=== PATIENT | female | born 1980 | race Caucasian/White ===

== ENCOUNTER → 2017-07-08 08:53 | Outpatient (CLI) | payer MEDICAID, SELFPAY ==
[2017-07-08 10:47] LABS: Cholesterol 148 mg/dL (200); High Density Lipoprotein 46 mg/dL; Thyroid Stim Hormone (TSH) 1.41 uIU/mL (0.358-3.74); Triglycerides 48 mg/dL; Very Low Density Lipoprotein 10 mg/dL (5-40)
[2017-07-09 09:42] LABS: Vitamin B12 267 pg/mL (211-911); Vitamin D,25 Hydroxy 14.8 ng/mL (29.95-100.01)
== END ==
PROVIDERS: Family Provider Internal Medicine; PCP Internal Medicine; Visit Provider Internal Medicine
DX: Z00.00 Encounter for general adult medical examination without abnormal findings (principal); F32.9 Major depressive disorder, single episode, unspecified
CPT/HCPCS: 36415; 80061; 82306; 82607; 84443

== ENCOUNTER 2017-08-21 09:52 | Outpatient (RCR) | payer MEDICAID, SELFPAY | END 2017-09-08 23:59 | LOC: NS 09:52 | PROVIDERS: Family Provider Internal Medicine; PCP Internal Medicine; Visit Provider Internal Medicine | DX: E66.01 Morbid (severe) obesity due to excess calories (principal); Z71.3 Dietary counseling and surveillance | CPT/HCPCS: 97802 ==

== ENCOUNTER 2017-10-07 10:30 | Outpatient (RCR) | payer MEDICAID, SELFPAY | END 2017-10-09 23:59 | LOC: NS 10:30 | PROVIDERS: Family Provider Internal Medicine; PCP Internal Medicine; Visit Provider Internal Medicine | DX: E66.01 Morbid (severe) obesity due to excess calories (principal); Z71.3 Dietary counseling and surveillance | CPT/HCPCS: 97803 ==

== ENCOUNTER 2017-11-05 14:30 | Outpatient (RCR) | payer MEDICAID, SELFPAY | END 2017-11-08 23:59 | LOC: NS 14:30 | PROVIDERS: Family Provider Internal Medicine; PCP Internal Medicine; Visit Provider Internal Medicine | DX: E66.01 Morbid (severe) obesity due to excess calories (principal); Z71.3 Dietary counseling and surveillance | CPT/HCPCS: 97803 ==

== ENCOUNTER 2017-12-04 13:00 | Outpatient (RCR) | payer MEDICAID, SELFPAY | END 2017-12-09 23:59 | LOC: NS 13:00 | PROVIDERS: Family Provider Internal Medicine; PCP Internal Medicine; Visit Provider Internal Medicine | DX: E66.01 Morbid (severe) obesity due to excess calories (principal); Z71.3 Dietary counseling and surveillance | CPT/HCPCS: 97803 ==

== ENCOUNTER 2017-12-25 08:17 | Outpatient (RCR) | payer MEDICAID, SELFPAY | END 2018-01-09 23:59 | LOC: NS 08:17 | PROVIDERS: Family Provider Internal Medicine; PCP Internal Medicine; Visit Provider Internal Medicine | DX: E66.01 Morbid (severe) obesity due to excess calories (principal); Z71.3 Dietary counseling and surveillance | CPT/HCPCS: 97803 ==

== ENCOUNTER 2018-01-27 14:30 | Outpatient (RCR) | payer MEDICAID, SELFPAY | END 2018-01-27 23:59 | LOC: NS 14:30 | PROVIDERS: Family Provider Internal Medicine; PCP Internal Medicine; Visit Provider Internal Medicine | DX: E66.01 Morbid (severe) obesity due to excess calories (principal); Z71.3 Dietary counseling and surveillance | CPT/HCPCS: 97803 ==

== ENCOUNTER 2018-03-26 05:23 | Day surgery (SDC) | payer MEDICAID, SELFPAY ==
[2018-03-26] VITALS (11 sets, daily range): BP systolic 104–125; BP diastolic 49–86; PULSE 62–73; RESP 14–18; TEMP 35.8–36.6; O2SAT 98–100; BMI 46.3
--- NOTE | 2018-03-26 | HYST_PTH ---
PATIENT: JOLENE LEE [place] [facility] [id number] AGE/SX: 37/F ROOM: RE03/26/[address]: Dr. Cierra Vasquez, MDDOB: 1980 BED: DIS: 03/26/2018 SPEC #: [id number] RECD: 03/26/18 12:39 STATUS: ANGELINE BALDEMAR #: [id number] JELANI: 03/26/18 00:[address]: Cierra Vasquez DEPT: SURGICAL PATHOLOGY RECD BY: Abhishek Rainey ENTERED: 03/26/18 12:40 SP TYPE: HYSTERECT OTHR DR: Dr. Lu Pitts MD Tissues: Uterus, NOS Procedures: Surgery Specimen Level V HEADER OPERATION: Hysterectomy, laparoscopic, total salpingectomy, ERAS PRE-OP DIAGNOSIS: Dysmenorrhea, suspected adenomyosis TISSUE SUBMITTED: Uterus with bilateral fallopiana tubes MICROSCOPIC DIAGNOSIS Uterus and bilateral fallopian tubes, hysterectomy and bilateral salpingectomy: Cervix - mild chronic cystic cervicitis. Endometrium - secretory endometrium. Myometrium - a minute subserosal leiomyoma. Bilateral fallopian tubes - no pathologic diagnosis: Merary 03/27/18 MICROSCOPIC DESCRIPTION Slides are reviewed. GROSS DESCRIPTION Received in fixative is one container labeled with the patient's name and designated uterus and bilateral fallopian tubes. The specimen consists of a hysterectomy specimen consisting of uterus with cervix and detached bilateral fallopian tubes. The uterus with cervix weighs 100 gm and measures 8.5 x 7 x 4.5 cm. The serosal surface is focally ragged. A minute subserosal nodule is noted. A Filshie clip is also noted at the right cornua, which appears intact. The ectocervical mucosa is unremarkable. The external os is circular in contour. The endocervical canal measures 3 cm in length and the endocervical mucosa is unremarkable. Sections of the cervix reveal a few cyst filled mucoid material. The triangular endometrial cavity measures 5 cm in length and up to 3 cm in width. The endometrium is focally congested without any mass lesion and measures 0.1 cm in thickness. A section of the myometrial wall did not reveal any mass lesion and measures 2.0 cm in thickness. Fallopian tubes are not identified as right or left and each measures 4 cm in length and 0.4 cm in diameter. Fimbrial end is identified. Sections reveal unremarkable cut surfaces. Plaster Helper sections are submitted in 9 cassettes as follows: 1 - anterior cervix, 2 - posterior cervix, 3 & 4 - anterior uterine wall, 5 & 6 - posterior uterine wall, 7 - a small subserosal nodule, 8 & 9 - bilateral fallopian tube each containing 1 fallopian tube. /OMAR:beverly 03/26/18 TC: 1 CPT: 56219
[2018-03-26 05:51] LABS: Internal QC Validated? YES +Cl - CLEAR BKGD; Pregnancy, Urine Negative Negative
[2018-03-26 06:07] LABS: Hematocrit 41.2 % (37-47); Hemoglobin 13.6 g/dl (12.0-15.0); Mean Corpuscular Hgb 28.1 pg (27.0-32.0); Mean Corpuscular Volume 85.1 fL (81-99); Platelet Count 220 K/mm3 (150-450); RBC Distribution Width CV 14.7 % (11.6-14.6); RBC Distribution Width SD 45.1 fl (35.1-43.9); Red Blood Count 4.84 M/mm3 (4.2-5.4); White Blood Count 8.6 K/mm3 (4.4-11.0)
[2018-03-26 06:10] LABS: Scan Indicated on CBC? Y/N NO
[2018-03-26] MEDS: Celecoxib 200 MG Capsule 400 MG PO (06:14)
[2018-03-26] MEDS: Acetaminophen 500 MG Tablet 1000 MG PO (06:14)
[2018-03-26] MEDS: Gabapentin 600 MG Tablet PO (06:14)
[2018-03-26] MEDS: Scopolamine 1mg/72hr Patch 1 PATCH TRANSDERM. (06:15)
[2018-03-26] MEDS: Phenazopyridine 95 MG Tablet 190 MG PO (06:21)
[2018-03-26 06:40] LABS: Bedside Glucose 120 mg/dL (70-110)
[2018-03-26] MEDS: Lidocaine/D5W 2,000 MG/250 ML IV.SOLN 37.32 MG IV (07:43)
[2018-03-26] MEDS: Lubricating Jelly 60 GM Tube 30 GM TOPICAL (08:10)
[2018-03-26] MEDS: Bupivacaine Mpf 0.5% 30 ML VIAL (09:20)
--- NOTE | 2018-03-26 09:28 | OP.PCM_ITS ---
Report of Operation Date of Procedure: 03/26/18 Pre-Operative Diagnosis: AUB, dysmenorrhea Post-Operative Diagnosis: same Surgery/Procedure Performed:: TLH, Bilateral salpingectomy, cystoscopy Description of Surgical Findings:: uterus normal, bladder adherant to lower uterine segment. bilateral tubes with filshie clips present Ovaries normal ink technician: Chandrika Zabala Type of Anesthesia:: General Special Medications: 0.5% marcaine Specimen's removed: uterus, cervix, bilateral tubes Drains: baez Estimated Blood Loss (mL): 50 Fluids Replaced: 600 Description of Procedure: Patient take to OR and prepped and draped in usual sterile fashion in dorsal lithotomy position with her arms tucked in a neurologically safe and neutral position. The uterus sounded to 9 cm. The Vcare uterine manipulator was sutured into place at 3/9:00 position and baez were placed. Attention was turned to the abdomen. All port sites were infiltrated with 0.5% marcaine before the incisions were made. The anterior abdominal wall was tented up with towel clamps and using a direct entry approach a 5 mm intraumbilical port was placed. Intraperitoneal placement was confirmed with the laparoscope and the pneumoperitoneum was created. The patient was placed in Trendelenburg and 5 mm right and left lower quadrant ports were placed under direct visualization. Air seal rapid insufflator was used. The bowel was swept away. Ovaries appeared normal. The mesosalpinx starting at fimbriated end were grasped, clamped, sealed and transected with the Ligasure. The round ligaments were divided. The anterior peritoneum was dissected down to create the bladder flap with blunt dissection and the LigaSure. The uterine arteries were isolated, clamped, sealed and cut. There was minimal back bleeding from the uterus. Straight bites on uterine arteries performed to drop them off the cuff. The Vcare was used as guide to create colpotomy using monopolar tip of ligasure. once specimen was removed attention was turned to vaginal portion. The specimen was handed off. The cuff was closed with interrupted 0-vicryl figure of 8 sutures. Cystoscopy was performed bilateral ureters were visualized with good efflux. bladder was intact. baez replaced and sponge stick placed in vagina. The pneumoperitoneum was recreated and the cuff and pedicles were hemostatic. The skin incisions were closed with skin glue and 3-0 monocryl in the LLQ port site. The vaginal sweep was completed by me. Grafts/Implants Used: none - Complications none - Admit VTE Documentation VTE Present on Admission: Yes VTE Mechan Device Prophylaxis: SCD's VTE Pharm Prophylaxis ordered?: Yes
--- NOTE | 2018-03-26 09:37 | DCINST_ITS ---
Discharge Diet: No Restrictions Discharge Activity: Return to Normal Activity, May Not Drive - while taking narcotic pain medications., May Shower Return to work on:: 05/07/18 May resume sexual activity in: 6-8 weeks Lifting Restrictions: 20 Call your doctor if your incision/area has: Continuous Slow Oozing, Sudden Increased Bleeding, Increased Pain/ Swelling, Increased Redness, Foul Smelling Discharge Call your doctor if you observe: Fever of 101 or Higher, Inability to urinate, Inability to have a bowel movement, Using more than one pad per hour Cleanse incision/area with: Soap & Water, Keep Dressing Clean & Dry - you have skin glue on your incisions, may let soap and water run over and dab dry. do not pick off glue, - Allergies/Adverse Reactions: Allergies No Known Allergies Allergy (Verified 03/19/18 14:21) Medications to take at Discharge Calcium Carbonate [Tums] 1,000 mg PO BIDCM PRN 03/19/18 Ibuprofen 600 mg PO PRN PRN 03/19/18 Docusate Sodium [Colace] 100 mg PO BID #60 capsule 03/26/18 Insulin Lispro [Humalog KwikPen] 0 unit SC Q4H PRN PRN insuln.pen 03/26/18 Oxycodone HCl/Acetaminophen [Percocet 5/325] 1 - 2 tablet PO Q4H PRN PRN 7 Days #15 tablet 03/26/18 SimETHICONE [Mylicon] 80 mg PO 4X/DAY #60 tablet 03/26/18 The following prescriptions were given: Oxycodone HCl/Acetaminophen [Percocet 5/325] 1 - 2 tablet PO Q4H PRN PRN 7 Days #15 tablet PRN Reason: Pain Docusate Sodium [Colace] 100 mg PO BID #60 capsule SimETHICONE [Mylicon] 80 mg PO 4X/DAY #60 tablet Primary Care Physician: Lu Pitts MD [Primary Care Provider] - Test Results: Test results from this visit will be discussed in further detail at your follow- up appointment, if applicable. Please Follow Up With: Cierra Vasquez MD When: as scheduled
[2018-03-26] MEDS: HYDROcodone Bitartrate/Apap 5/325 Tablet PO (12:08)
--- NOTE | 2018-03-26 12:24 | SUR.PHASEII ---
1220 baez cath discont. small amt scarlet urine noted in drainage bag.
== END 2018-03-26 15:21 | disposition home or self-care (01) ==
LOC: SDC 05:23 → AC 05:25 → MS2 10:21 → AC 11:12
PROVIDERS: Family Provider Internal Medicine; PCP Internal Medicine; Referring Provider Obstetrics & Gynecology; Visit Provider Obstetrics & Gynecology
PROC: 0UT94ZZ Resection of Uterus, Percutaneous Endoscopic Approach (ICD-10-PCS; CPT 52000; principal; 2018-03-26 07:10)
DX: N72 Inflammatory disease of cervix uteri (principal); D25.2 Subserosal leiomyoma of uterus; N94.6 Dysmenorrhea, unspecified
CPT/HCPCS: 00840; 52000; 58571; 81025; 82962; 85027; 86850; 86900; 88307; J7050; J7120; A4216; J2405

== ENCOUNTER → 2019-11-22 11:44 | Outpatient (CLI) | payer MEDICAID, SELFPAY ==
[2019-01-11 11:12] VITALS: BMI 46.3
--- NOTE | 2019-11-22 12:09 | EKG12_ITS ---
Test Reason : FAMILY HX Blood Pressure : / mmHG Vent. Rate : 071 BPM Atrial Rate : 071 BPM P-R Int : 164 ms QRS Dur : 078 ms QT Int : 418 ms P-R-T Axes : 032 031 030 degrees QTc Int : 454 ms Normal sinus rhythm Normal ECG Confirmed by ANTHONY COATES, BOOM ([id number]), research editor DONA BARROW ([id number]) on 11/23/2019 10:09:22 AM Referred By: Beth Gallegos Confirmed By:BOOM CRUZ MD
[2019-11-22 12:32] LABS: Hematocrit 43.7 % (37-47); Hemoglobin 14.5 g/dL (12.0-15.0); Mean Corp Hgb Conc 33.2 g/dL (32-36); Mean Corpuscular Hgb 29.8 pg (27.0-32.0); Mean Corpuscular Volume 89.9 fL (81-99); Mean Platelet Vol. 11.5 fl (6.2-12.0); Platelet Count 214 K/mm3 (150-450); RBC Distribution Width CV 13.7 % (11.6-14.6); RBC Distribution Width SD 44.8 fl (35.1-43.9); Red Blood Count 4.86 M/mm3 (4.2-5.4); White Blood Count 8.7 K/mm3 (4.4-11.0)
[2019-11-22 13:12] LABS: Hemoglobin A1c 5.1 % (3.8-5.6)
[2019-11-22 13:37] LABS: AST(SGOT) 12 U/L (15-37); Alanine Aminotransfer ALT/SGPT 24 U/L (13-56); Albumin, Serum 3.5 g/dL (3.2-5.0); Alkaline Phosphatase 69 U/L (45-117); Anion Gap 7 (5-15); BUN 10 mg/dL (7-18); BUN/Creat Ratio 15.2 RATIO (10-20); Calcium,Total 8.5 mg/dL (8.5-10.1); Chloride 105 mmol/L (98-107); Cholesterol 164 mg/dL (200); Creatinine, Serum 0.66 mg/dL (0.55-1.02); EST Glomerular Filtration Rate 107 mL/min (>60); Est Glom Filt Rate - Afr Amer 130 mL/min (>60); Globulin 3.4 g/dL (2.2-4.2); Glucose 85 mg/dL (74-106); High Density Lipoprotein 44 mg/dL; Protein, Total 6.9 g/dL (6.4-8.2); Sodium Level 136 mmol/L (136-145); Thyroid Stim Hormone (TSH) 1.33 uIU/mL (0.358-3.74); Triglycerides 44 mg/dL; Very Low Density Lipoprotein 9 mg/dL (5-40)
== END ==
PROVIDERS: PCP Nurse Practitioner Adult Health; Referring Provider Nurse Practitioner Adult Health; Visit Provider Nurse Practitioner Adult Health
DX: Z13.29 Encounter for screening for other suspected endocrine disorder (principal); Z13.21 Encounter for screening for nutritional disorder; Z13.228 Encounter for screening for other metabolic disorders; Z13.0 Encounter for screening for diseases of the blood and blood-forming organs and certain disorders involving the immune mechanism; Z13.6 Encounter for screening for cardiovascular disorders; Z13.220 Encounter for screening for lipoid disorders
CPT/HCPCS: 36415; 80053; 80061; 83036; 84443; 85027; 93005

== ENCOUNTER 2020-02-09 22:31 | Emergency (ER) | payer MEDICAID, SELFPAY ==
[2019-01-11 11:12] VITALS: BMI 46.3
[2020-02-09 22:31] VITALS: BP 146/91; PULSE 98; RESP 16; TEMP 36.4; O2SAT 100; BMI 47.7
--- NOTE | 2020-02-09 22:54 | RAD_ITS ---
STUDY: X-RAY - LEFT FOOT CLINICAL: Female, 39 years old. dropped a plate on top of lt foot -- c/o pain across dorsal surface area of proximal 2nd-4th metatarsal TECHNIQUE: 3 view(s) of the foot. COMPARISON: None. FINDINGS: Normal talus, calcaneus, and tarsal bones. Normal visualized subtalar, talonavicular, calcaneocuboid, tarsal and tarsometatarsal articulations. Normal metatarsi. Normal metatarsophalangeal joint of the great toe. Normal tibial and fibular sesamoid bones. Normal interphalangeal joint of the great toe. Normal phalanges of the great toe. Normal second through fifth metatarsophalangeal joints. Normal interphalangeal joints and phalanges of the lesser toes. The soft tissue structures are unremarkable. RAD/Foot min 3 Views IMPRESSION: No acute osseous injury is evident. Electronically Signed: Manuel Mckeon MD at 23:19 EDT Tel , Service support ,
--- NOTE | 2020-02-09 22:54 | ED.DCSUM_ITS ---
History of Present Illness Chief Complaint: Lower Extremity Injury Informant: Patient Narrative: Presents with injury to her left foot. At 1 PM today she dropped a heavy plate on it at home. She is having pain in the proximal portion of the foot. No ankle injury or distal foot injury. Current severity is mild. She has some mild numbness in that area. Worsened by nothing. Relieved by nothing. - Past Medical History (1) Yeast infection of nipple, Status: Acute (2) Depression Status: Chronic (3) Morbid obesity Status: Chronic Past Medical History - Allergies and Home Meds Allergies/Adverse Reactions: Allergies No Known Allergies Allergy (Verified 02/09/20 22:33) Primary Care Physician: Beth Gallegos NP, [facility] [Primary Care Provider] - Prior records reviewed: Yes Past Medical History: - - Problem list - see Smoking Status: Former smoker Alcohol: None Drugs: None Review of Systems General: Denies: Chills, Fever, Sweats Eyes: Denies: Visual changes - bilaterally, Diplopia ENT: Denies: Rhinorrhea, Sore throat Cardiovascular: Denies: Chest pain, Palpitations Respiratory: Denies: Dyspnea, Cough, Dyspnea on exertion Gastrointestinal: Denies: Abdominal pain, Nausea, Vomiting, Diarrhea, Melena, Hematochezia Genitourinary: Denies: Dysuria, Hematuria, Frequency Musculoskeletal: Reports: Extremity Pain. Denies: Back pain Skin: Denies: Rash, Wounds Neurological: Denies: Headache, Weakness, Numbness Physical Exam Vital Signs/Narrative: Vital Signs Temp Pulse Resp BP Pulse Ox 02/09/20 22:31 97.5 F L 98 16 146/91 H 100 General: Well nourished, Well developed, No Acute Distress Head: Normocephalic, Atraumatic Eyes: Perrl, EOMI ENT: Moist mucous membranes, No rhinorrhea Neck: Supple, Nontender Cardiovascular: Regular rate, Regular rhythm, No murmurs Respiratory: No distress, CTA bilaterally, Chest nontender Abdomen: Soft, Nontender, Nondistended, Normal bowel sounds Back: Nontender, Normal Inspection Extremities: No edema, Tenderness - Tenderness in the proximal foot right over the proximal cuneiform. Normal range of motion. Distal neurovascular intact. Minimal swelling Skin: Normal color, No rash Neurological: Alert, Oriented x3, Cranial nerves II-XII grossly intact, Normal Strength, Normal Sensation Psychological: Normal affect, Normal Mood Diagnostic/Tx/Re-eval - Medical Decision Making Patient did not anything for pain. Given ice pack. X-ray of the left foot obtained. X-ray shows nothing acute. At this time I feel the patient just has a contusion to the top of her foot with a little neuropraxia. This should resolve. Given Kieth wrap and will follow-up as an outpatient will continue anti- inflammatories ED Disposition - Plan for ED Patient: Disposition: Home or Assisted Living Diagnosis: Contusion of foot Instructions: ED FOOT CONTUSION Referrals: Beth Gallegos NP, [facility] [Primary Care Provider] -
== END 2020-02-09 23:55 | disposition home or self-care (01) ==
PROVIDERS: Emergency Provider Emergency Medicine; PCP Nurse Practitioner Adult Health
DX: S90.32XA Contusion of left foot, initial encounter (principal); E66.01 Morbid (severe) obesity due to excess calories; X58.XXXA Exposure to other specified factors, initial encounter
CPT/HCPCS: 73630; 99282

== ENCOUNTER → 2020-07-19 06:37 | Outpatient (CLI) | payer MEDICAID, SELFPAY ==
--- NOTE | 2020-07-19 06:43 | MRI_ITS ---
STUDY: MRI LEFT REARFOOT WITHOUT CONTRAST REASON FOR EXAM: Left foot/ankle pain for years, evaluate posterior tibialis tendinitis. TECHNIQUE: Standardized fat and water weighted pulse sequences were obtained in all 3 orthogonal planes. COMPARISON: Radiographs 02/09/2020. FINDINGS: There is a ganglion cyst dorsal to the distal talus/talonavicular articulation (T2 sagittal images 8-13) measuring approximately 0.6 x 1.6 cm (AP x transverse). There is mild edema in the plantar heel pad. There is mild thickening of the retromalleolar posterior tibialis tendon (T2 axial 28-30) without discrete tendon tear and with very mild submalleolar and retromalleolar tenosynovitis (inversion recovery sagittal images 5, 7). Normal flexor digitorum longus tendon. There is fluid in the flexor hallucis longus tendon sheath proximal and distal to the sustentaculum monica (inversion recovery sagittal images 10-13). There is a very small volume of fluid in the perimalleolar peroneal tendon sheath (inversion recovery sagittal image 22). The peroneus longus and brevis tendons are morphologically normal. Normal tibialis anterior tendon. Normal extensor hallucis longus tendon. Normal extensor digitorum longus tendons. Normal Achilles tendon and teno-osseous insertion. Normal plantar fascia. There is a plantar calcaneal enthesophyte. Normal intrinsic muscles of the rearfoot. Normal distal tibiofibular syndesmotic ligamentous complex. Normal lateral ligamentous complex. There is fat replacement the sinus tarsi (T1 sagittal images 12-15). There is mild bone edema/cystic change in the talus and calcaneus adjacent to the sinus tarsi. Normal deltoid ligamentous complexes. Normal plantar calcaneonavicular (spring) ligament. Normal tibiotalar articulation. Normal talar dome. Normal subtalar articulations. Normal talonavicular articulation. There is a small cyst in the plantar medial aspect of the navicular (inversion recovery sagittal image 7). Normal calcaneocuboid articulation. Normal navicular-cuneiform articulations. Normal tarsometatarsal articulations. Normal Lisfranc ligament. MRI/Lower Ext/No Jt/w/o IMPRESSION: Mild posterior tibialis tendinosis and very mild posterior tibialis tenosynovitis. 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 Very mild peroneal tenosynovitis. Fluid in the flexor hallucis longus tendon sheath. Ganglion cyst dorsal to the distal talus/talonavicular articulation. Electronically Signed: Derrell Mo MD at 8:56 EST Tel , Service support ,
== END ==
PROVIDERS: PCP Nurse Practitioner Adult Health
DX: M76.822 Posterior tibial tendinitis, left leg (principal); M79.672 Pain in left foot
CPT/HCPCS: 73718

== ENCOUNTER 2020-12-22 14:32 | Emergency (ER) | payer MEDICAID, SELFPAY ==
[2020-12-22 14:33] VITALS: BP 123/87; PULSE 77; RESP 18; TEMP 37.2; O2SAT 100; BMI 46.3
--- NOTE | 2020-12-22 14:57 | EKG12_ITS ---
Test Reason : CP Blood Pressure : / mmHG Vent. Rate : 066 BPM Atrial Rate : 066 BPM P-R Int : 174 ms QRS Dur : 078 ms QT Int : 414 ms P-R-T Axes : 053 037 043 degrees QTc Int : 434 ms Normal sinus rhythm Normal ECG Confirmed by ANTHONY COATES, BOOM ([id number]), field map editor DONA BARROW ([id number]) on 12/26/2020 9:08:36 AM Referred By: PAULETTE/RUBI Confirmed By:BOOM CRUZ MD
[2020-12-22 15:31] LABS: Absolute Lymphocyte Count 3.16 X10^3/uL (0.83-4.51); Basophil# 0.05 X10^3/uL; Basophil% 0.5 % (0-1); Eosinophil# 0.14 X10^3/uL; Eosinophils% 1.4 % (0-5); Hematocrit 44.2 % (37-47); Hemoglobin 14.9 g/dL (12.0-15.0); Lymphocyte # 3.16 X10^3/ul (0.83-4.51); Mean Corp Hgb Conc 33.7 g/dL (32-36); Mean Corpuscular Hgb 30.2 pg (27.0-32.0); Mean Corpuscular Volume 89.7 fL (81-99); Mean Platelet Vol. 11.2 fl (6.2-12.0); Monocyte# 0.46 X10^3/uL; Monocyte% 4.7 % (0-10); NRBC Flagged by Analyzer 0 % (0-5); Neutrophil # 6.03 X10^3/uL (2.7-7.7); Neutrophil % 61.2 % (47-70); Platelet Count 227 K/mm3 (150-450); RBC Distribution Width CV 13.3 % (11.6-14.6); RBC Distribution Width SD 43.9 fl (35.1-43.9); Red Blood Count 4.93 M/mm3 (4.2-5.4); White Blood Count 9.9 K/mm3 (4.4-11.0)
--- NOTE | 2020-12-22 15:40 | RAD_ITS ---
STUDY: X-RAY CHEST REASON FOR EXAM: Female, 40 years old. Chest pain and shortness of breath. TECHNIQUE: Single AP portable view of the chest. COMPARISON: None. FINDINGS: The lungs are clear and expanded. There is no demonstrated pleural abnormality. Normal size heart. Normal mediastinum and sabine. Normal visualized pulmonary arteries. Normal visualized aortic arch and descending thoracic aorta. Normal visualized thoracic spine. Normal visualized ribs, clavicles, and shoulders. There is no demonstrated abnormality of the visualized soft tissue structures of the upper abdomen. RAD/Chest 1 View (Portable) IMPRESSION: Normal x-ray examination of the chest. Electronically Signed: Reed Cordova MD at 15:54 EDT , Service support ,
[2020-12-22 15:43] LABS: Anion Gap 4 (5-15); BUN 14 mg/dL (7-18); BUN/Creat Ratio 22.4 RATIO (10-20); Calcium,Total 9.2 mg/dL (8.5-10.1); Chloride 110 mmol/L (98-107); Creatinine, Serum 0.63 mg/dL (0.55-1.02); EST Glomerular Filtration Rate 113 mL/min (>60); Est Glom Filt Rate - Afr Amer 137 mL/min (>60); Estimated Creatinine Clearance 104.55 ml/min; Glucose 88 mg/dL (74-106); Potassium 3.9 mmol/L (3.5-5.1); Sodium Level 139 mmol/L (136-145); Troponin-I HS < 3.0 pg/mL (3.0-53.7)
[2020-12-22 16:14] VITALS: BP 108/72; PULSE 58; RESP 15; O2SAT 100
--- NOTE | 2020-12-22 16:23 | EDS_ITS ---
HPI History of Present Illness Chief Complaint: Chest Pain Informant: patient Onset/Context/Timing Onset: Yesterday Activity at onset: gradual Timing: Waxes and wanes Quality: Positive for Sharp Location: Right Parasternal Current Severity: Moderate Maximum Severity: Moderate Narrative Narrative: Patient presents secondary to right upper chest pain. She states it is sharp in nature. She does feel short of breath and has to consciously take a deep breath. Pain started last evening and resolved for short time. It has been constant again for the past 3 or 4 hours. Patient states she has had this in the past and it seems to resolve spontaneously. She is never had it evaluated. No personal history of cardiac disease. [facility] Medical History Tendinitis Home Medications simethicone [Mylicon] 80 mg PO 4X/DAY #60 tablet 03/26/18 [Rx Last Taken Unknown ] naproxen [Naprosyn] 500 mg PO BID PRN #20 tab 12/22/20 [Rx Last Taken Unknown] prednisone 60 mg PO DAILY #15 tab 12/22/20 [Rx Last Taken Unknown] Allergy/AdvReac Type Severity Reaction Status Date / Time No Known Allergies Allergy Verified 12/22/20 14:33 Family History Other Diabetes Heart disease Surgical History History of section History of hysterectomy History of tubal ligation Social History Smoking Status: Never smoker second hand exposure: Yes alcohol intake: never substance use type: does not use ROS ROS ED Constitutional Constitutional ED: Denies chills or fever(s) Eyes Eyes: Denies change in vision ENT ENT ED: Denies sore throat Cardiovascular Cardiovascular: Reports chest pain Respiratory/Chest Respiratory/Chest: Reports dyspnea; Denies cough Gastrointestinal Gastrointestinal: Denies abdominal pain, diarrhea, nausea or vomiting Genitourinary Genitourinary ED: Denies dysuria Musculoskeletal Musculoskeletal: Denies back pain Integumentary Denies rash Neurologic Neurologic: Denies headache(s) or weakness Psychiatric Psychiatric: Denies anxiety or depression Allergic/Immunologic Allergic/Immunologic ED: Denies urticaria EXAM Physical Exam Const Vital Signs: 12/22/20 14:33 12/22/20 16:14 12/22/20 16:15 Temperature 98.9 F Temperature Source Temporal Pulse Rate 77 58 L Respiratory Rate 18 15 Respiratory Effort Non-Labored Short of Breath Blood Pressure 123/87 H 108/72 Blood Pressure Mean 99 84 Pulse Ox 100 100 Oxygen Delivery Method Room Air Room Air 12/22/20 16:18 12/22/20 18:10 Temperature Temperature Source Pulse Rate 57 L Respiratory Rate 19 H Respiratory Effort Blood Pressure 107/71 Blood Pressure Mean 83 Pulse Ox 100 Oxygen Delivery Method Room Air Room Air Positive well nourished and well developed General Appearance ED: well developed HEENT Reports normocephalic and head/scalp atraumatic Eyes PERRL and EOMs intact bilaterally Neck supple Chest Wall inspection of chest normal and palpation of chest normal Resp normal respiratory effort and clear to auscultation bilaterally Cardio regular rate and regular rhythm GI normal to inspection, nondistended, normoactive bowel sounds Palpation: soft Extremity normal to inspection Neuro oriented x3 and no sensory deficits noted Sensorium / Orientation: alert Motor Exam: strength 5/5 throughout Psych mental status grossly normal Skin no rashes or lesions noted Heart Score History: Slightly/Non-Suspicious ECG: Normal Age: </= 45 years Risk Factors: No Risk Factors Troponin: </= Normal Limit Score: 0 MDM MDM MDM Narrative Medical decision making narrative: Labs, EKG, chest x-ray obtained per nursing protocol. Lab Data Attestation: I reviewed the patient's lab results. Labs: Laboratory Results - last 24 hr 12/22/20 12/22/20 12/22/20 15:20 15:20 16:25 WBC 9.9 RBC 4.93 Hgb 14.9 Hct 44.2 MCV 89.7 MCH 30.2 MCHC 33.7 RDW Std Deviation 43.9 RDW Coeff of Shameka 13.3 Plt Count 227 MPV 11.2 Immature Gran % (Auto) 0.200 Neut % (Auto) 61.2 Lymph % (Auto) 32.0 [place] % (Auto) 4.7 Eos % (Auto) 1.4 Baso % (Auto) 0.5 Absolute Neuts (auto) 6.0 Absolute Lymphs (auto) 3.16 Nucleated RBC % 0 D-Dimer Quant (PE/DVT) 0.40 Sodium 139 Potassium 3.9 Chloride 110 H Carbon Dioxide 25.0 Anion Gap 4 L BUN 14 Creatinine 0.63 Estim Creat Clear Calc 104.55 Est GFR (MDRD) Af Amer 137 Est GFR (MDRD) Non-Af 113 BUN/Creatinine Ratio 22.4 H Glucose 88 Calcium 9.2 Troponin I High Sens < 3.0 L Radiography Chest X-Ray - ED: 1 View, Normal, Heart, Lungs and Mediastinum Diagnostic Testing: Radiology Impression Chest X-Ray 12/22/20 15:40 IMPRESSION: Normal x-ray examination of the chest. Electronically Signed: Reed Cordova MD at 15:54 EDT , Service support , EKG Initial EKG: Attestation: I personally reviewed and interpreted this EKG as follows: Interpretation: Sinus Rhythm (Sinus at 66 with no acute ischemia.) Treatment and Re-Evaluation Comments:: Patient's lab work is reviewed and unremarkable. D-dimer is negativ e. She was given a dose of Toradol and Solu-Medrol here. On repeat evaluation she does have some improvement in her symptoms. Patient be given prescription for naproxen and prednisone. Return instructions are provided. Discharge Plan Triage Chief Complaint: Chest Pain Other Complaint: Shortness of Breath ED Provider: Mony Cash Dx/Rx/DC Orders Clinical Impression: Acute chest wall pain Instructions: ED Chest Pain, Noncardiac Prescriptions: New naproxen [Naprosyn] 500 mg tablet 500 mg PO BID PRN (Reason: pain) Qty: 20 RF: 0 prednisone 20 mg tablet 60 mg PO DAILY Qty: 15 RF: 0 No Action simethicone [Mi-Acid Gas Relief(simethicon)] 80 MG tablet 80 mg PO 4X/DAY Qty: 60 RF: 0 Primary Care Provider: Beth Gallegos NP Referrals: Beth Gallegos NP, [facility] [Primary Care Provider] - 1-2 Weeks Disposition Disposition: Home, Self Care
[2020-12-22 18:10] VITALS: BP 107/71; PULSE 57; RESP 19; O2SAT 100
[2020-12-22] MEDS: MethylPREDNISolone 125 MG/2 ML Vial IV (18:15)
[2020-12-22] MEDS: Ketorolac 30 MG/ML Syringe IV (18:15)
[2020-12-22 19:06] VITALS: BP 132/87; PULSE 64; RESP 15
== END 2020-12-22 19:19 | disposition home or self-care (01) ==
PROVIDERS: Emergency Provider Emergency Medicine; PCP Nurse Practitioner Adult Health
DX: R07.89 Other chest pain (principal); R06.02 Shortness of breath; Z79.1 Long term (current) use of non-steroidal anti-inflammatories (NSAID); Z79.52 Long term (current) use of systemic steroids
CPT/HCPCS: 71045; 80048; 84484; 85025; 85379; 93005; 96374; 96375; 99284; A4216

== ENCOUNTER → 2021-01-23 12:52 | Outpatient (CLI) | payer MEDICAID, SELFPAY | PROVIDERS: PCP Nurse Practitioner Adult Health; Referring Provider Physician Assistant Surgical; Visit Provider Physician Assistant Surgical | DX: R05 Cough (principal) | CPT/HCPCS: 87635; U0005; U0003 ==

== ENCOUNTER 2021-05-21 11:10 | Emergency (ER) | payer MEDICAID, SELFPAY ==
[2021-05-21 11:11] VITALS: BP 136/95; PULSE 86; RESP 15; TEMP 36.7; O2SAT 100; BMI 45.4
--- NOTE | 2021-05-21 13:14 | EDS_ITS ---
HPI History of Present Illness Chief Complaint: Back Informant: patient Onset/Context/Timing Onset: Days Narrative Narrative: Patient presents secondary to left lower back pain. Patient states that she fell asleep on the couch Friday night. When she woke Friday morning she had pain across her lower back. She is having trouble bending. She did use supportive care and was able to go to work this morning. While at work she had increased pain with occasional sharp shooting pain in the left lower back wrapping around her side. She denies urinary symptoms. Pain does not radiate down her leg. She does have a bad tendon in her left foot that she is currently on diclofenac, Tylenol, and gabapentin for PFSH [facility] Medical History Contact with or suspected exposure to other viral communicable disease Cough Depression Tendinitis Yeast infection of nipple, Home Medications cyclobenzaprine 10 mg PO BID PRN #10 tab 05/21/21 [Rx Last Taken Unknown] diclofenac sodium 75 mg PO DAILY 05/21/21 [History Last Taken Unknown] gabapentin 600 mg PO TID 05/21/21 [History Last Taken Unknown] prednisone 60 mg PO DAILY #12 tab 05/21/21 [Rx Last Taken Unknown] Allergy/AdvReac Type Severity Reaction Status Date / Time No Known Allergies Allergy Verified 05/21/21 11:13 Family History Other Diabetes Heart disease Surgical History History of section History of hysterectomy History of tubal ligation Social History Smoking Status: Never smoker second hand exposure: Yes alcohol intake: never substance use type: does not use ROS ROS ED Constitutional Constitutional ED: Denies chills or fever(s) Eyes Eyes: Denies change in vision ENT ENT ED: Denies sore throat Cardiovascular Cardiovascular: Denies chest pain Respiratory/Chest Respiratory/Chest: Denies cough or dyspnea Gastrointestinal Gastrointestinal: Denies abdominal pain, diarrhea, nausea or vomiting Genitourinary Genitourinary ED: Denies dysuria, hematuria or urinary frequency Musculoskeletal Musculoskeletal: Reports back pain Integumentary Denies rash Neurologic Neurologic: Denies headache(s) or weakness Allergic/Immunologic Allergic/Immunologic ED: Denies urticaria EXAM Physical Exam Const Vital Signs: 05/21/21 11:11 Temperature 98.1 F Temperature Source Temporal Pulse Rate 86 Respiratory Rate 15 Blood Pressure 136/95 H Blood Pressure Mean 108 Pulse Ox 100 Oxygen Delivery Method Room Air Positive well nourished and well developed General Appearance ED: well developed HEENT Reports moist mucous membranes Eyes PERRL and EOMs intact bilaterally Neck supple Resp normal respiratory effort and clear to auscultation bilaterally Cardio regular rate and regular rhythm GI normal to inspection, nondistended, normoactive bowel sounds Back/Spine normal to inspection Back/Spine Narrative: Reproducible tenderness in the left lower lumbar paraspinal muscles. No CVA tenderness. Extremity normal to inspection Neuro oriented x3 Sensorium / Orientation: alert Motor Exam: strength 5/5 throughout Psych mental status grossly normal Skin no rashes or lesions noted MDM MDM MDM Narrative Medical decision making narrative: Patient is already taken diclofenac, Tylenol, gabapentin. She is given a dose of prednisone here. Urinalysis sent. Lab Data Attestation: I reviewed the patient's lab results. Labs: Laboratory Results - last 24 hr 05/21/21 13:32 Urine Color Yellow Urine Clarity Clear Urine pH 5.0 Ur Specific [place] 1.010 Urine Protein Negative Urine Glucose (UA) Normal Urine Ketones Negative Urine Occult Blood Negative Urine Nitrite Negative Urine Bilirubin Negative Urine Urobilinogen Normal Ur Leukocyte Esterase Negative Urine RBC 0 SEEN Urine WBC 0 SEEN Ur Squamous Epith Cells 0-5 SEEN Urine Bacteria 0 SEEN Urine Mucus 0 SEEN Treatment and Re-Evaluation Comments:: Urine reveals no evidence of hematuria or infection. Patient will continue her home medications and I will add prednisone as well as a muscle relaxer. Return instructions provided. Discharge Plan Triage Chief Complaint: Back ED Provider: Mony Cash Dx/Rx/DC Orders Clinical Impression: Strain of lumbar paraspinous muscle Instructions: ED Back Sprain/Strain Prescriptions: New prednisone 20 mg tablet 60 mg PO DAILY Qty: 12 RF: 0 cyclobenzaprine 10 mg tablet 10 mg PO BID PRN (Reason: muscle spasm) Qty: 10 RF: 0 No Action gabapentin 600 mg tablet 600 mg PO TID RF: 0 diclofenac sodium 75 mg tablet,delayed release (DR/EC) 75 mg PO DAILY RF: 0 Primary Care Provider: Beth Gallegos NP Referrals: Beth Gallegos WAITER/WAITRESS ROOM SERVICE, WAITER/WAITRESS ROOM SERVICE-C [Primary Care Provider] - 1 Week Disposition Disposition: Home, Self Care
[2021-05-21] MEDS: predniSONE 20 MG Tablet 60 MG PO (13:31)
[2021-05-21 13:38] LABS: Bacteria 0 SEEN /hpf (None Seen); Mucous, Urine 0 SEEN /hpf (<or=2+); Red Blood Cells-Urine 0 SEEN /hpf (0-5); White Blood Cells 0 SEEN /hpf (0-5)
[2021-05-21 13:39] LABS: Color, Urine Yellow (Yellow); Glucose, Dipstick Normal (Normal); Ketone-Dipstick Negative (Negative); Leukocyte Esterase-Dipstick Negative /ul (Negative); Nitrite-Dipstick Negative (Negative); Occult Blood-Urine Negative /ul (Negative); Protein-Dipstick Negative (Negative); Urine Bilirubin Dipstick Negative (Negative); Urine Clarity Clear (Clear); Urine Urobilinogen Normal (Normal)
[2021-05-21 13:44] LABS: Squamous Epithelial Cells - UA 0-5 SEEN /hpf (5-10)
[2021-05-21 14:30] VITALS: BP 114/68; PULSE 67; RESP 15; O2SAT 97
== END 2021-05-21 14:31 | disposition home or self-care (01) ==
PROVIDERS: Emergency Provider Emergency Medicine; PCP Nurse Practitioner Adult Health; Visit Provider Emergency Medicine
DX: S39.012A Strain of muscle, fascia and tendon of lower back, initial encounter (principal); X58.XXXA Exposure to other specified factors, initial encounter; Y93.9 Activity, unspecified; Y92.9 Unspecified place or not applicable; F32.A Depression, unspecified; Z79.899 Other long term (current) drug therapy; M77.9 Enthesopathy, unspecified
CPT/HCPCS: 81001; 99283

== ENCOUNTER 2022-01-24 21:39 | Emergency (ER) | payer MEDICAID, SELFPAY ==
[2022-01-24 21:40] VITALS: BP 119/85; PULSE 90; RESP 18; TEMP 36.6; O2SAT 98; BMI 46.3
[2022-01-24 21:55] LABS: Mucous, Urine 0 SEEN /hpf (<or=2+); Red Blood Cells-Urine 0 SEEN /hpf (0-5); Squamous Epithelial Cells - UA 0 SEEN /hpf (5-10); White Blood Cells 0 SEEN /hpf (0-5)
[2022-01-24 22:01] LABS: Color, Urine Straw (Yellow); Glucose, Dipstick Normal (Normal); Ketone-Dipstick Negative (Negative); Leukocyte Esterase-Dipstick Negative /ul (Negative); Nitrite-Dipstick Negative (Negative); Occult Blood-Urine Negative /ul (Negative); Protein-Dipstick Negative (Negative); Specific Gravity, Urine 1.015 (1.002-1.030); Urine Bilirubin Dipstick Negative (Negative); Urine Clarity Sl. Cloudy (Clear); Urine Urobilinogen Normal (Normal)
[2022-01-24 22:11] LABS: Bacteria 1+ /hpf (None Seen); Transitional Epithelial - Ur 0-5 SEEN /hpf (0-5)
[2022-01-24 22:11] LABS: Absolute Lymphocyte Count 3.75 X10^3/uL (0.83-4.51); Absolute Neutrophil Count 10.3 X10^3/uL (2.0-7.7); Basophil# 0.05 X10^3/uL; Basophil% 0.3 % (0-1); Eosinophil# 0.21 X10^3/uL; Eosinophils% 1.4 % (0-5); Hematocrit 44.9 % (37-47); Hemoglobin 15.1 g/dL (12.0-15.0); Lymphocyte # 3.75 X10^3/ul (0.83-4.51); Lymphocyte % 25.1 % (19-41); Mean Corp Hgb Conc 33.6 g/dL (32-36); Mean Corpuscular Hgb 30.4 pg (27.0-32.0); Mean Corpuscular Volume 90.3 fL (81-99); Mean Platelet Vol. 10.8 fl (6.2-12.0); Monocyte# 0.59 X10^3/uL; Monocyte% 3.9 % (0-10); NRBC Flagged by Analyzer 0 % (0-5); Neutrophil # 10.29 X10^3/uL (2.7-7.7); Neutrophil % 68.8 % (47-70); Platelet Count 257 K/mm3 (150-450); RBC Distribution Width CV 13.7 % (11.6-14.6); RBC Distribution Width SD 45.5 fl (35.1-43.9); Red Blood Count 4.97 M/mm3 (4.2-5.4)
[2022-01-24 22:28] LABS: Internal QC Validated? YES +Cl - CLEAR BKGD; Pregnancy, Serum, hCG Quali. NEGATIVE Negative
[2022-01-24 22:36] LABS: Anion Gap 7 (5-15); BUN 14 mg/dL (7-18); BUN/Creat Ratio 18.1 RATIO (10-20); Calcium,Total 8.9 mg/dL (8.5-10.1); Chloride 110 mmol/L (98-107); Creatinine, Serum 0.77 mg/dL (0.55-1.02); EST Glomerular Filtration Rate 88 mL/min (>60); Est Glom Filt Rate - Afr Amer 107 mL/min (>60); Glucose 99 mg/dL (74-106); Sodium Level 139 mmol/L (136-145)
--- NOTE | 2022-01-24 22:49 | US_ITS ---
EXAM: US ABDOMEN LIMITED, RIGHT UPPER QUADRANT CLINICAL INDICATION: RUQ ABD PAIN TECHNIQUE: Real-time ultrasound of the right upper quadrant with image documentation. This report was created using [employer] report generation technology. COMPARISON: 03/18/2017 FINDINGS: LIVER: Hepatomegaly with liver measuring 17.7 cm in length. Liver is echogenic, compatible with hepatic steatosis. No focal hepatic masses. No intrahepatic biliary ductal dilation. GALLBLADDER: Single echogenic focus with shadowing compatible compatible with a stone at the gallbladder neck versus cystic duct measures up to 1.9 cm. No gallbladder wall thickening or peristalsis fluid. Grossly distended gallbladder measuring up to 14.1 cm in length. Sonographic Denson''s sign is absent. COMMON BILE DUCT: See above. PANCREAS: Visualized pancreas is unremarkable with no pancreatic ductal dilatation. RIGHT KIDNEY: Right kidney is normal. There is no hydronephrosis. No shadowing calculus. No focal lesion or perinephric collection is demonstrated. OTHER VASCULATURE: Portable vein is patent with normal direction of blood flow. FREE FLUID: No varicosities fluid. No ascites. US/Gallbladder IMPRESSION: 1. Cholelithiasis without acute cholecystitis. 2. Hepatomegaly and hepatic steatosis. Electronically Signed: Uday Hicks MD at 23:57 EDT ,
[2022-01-24 22:59] LABS: Lipase 87 U/L (73-393)
[2022-01-24 23:05] LABS: AST(SGOT) 11 U/L (15-37); Alanine Aminotransfer ALT/SGPT 30 U/L (13-56); Albumin, Serum 3.5 g/dL (3.2-5.0); Alkaline Phosphatase 71 U/L (45-117); Bilirubin, Direct 0.06 mg/dL (0.00-0.30); Globulin 3.2 g/dL (2.2-4.2); Protein, Total 6.7 g/dL (6.4-8.2)
[2022-01-24 23:54] VITALS: BP 121/81; PULSE 78; RESP 14; O2SAT 98
[2022-01-25] MEDS: Mag Hydrox/Al Hydrox/Simeth 30 ML UDC PO (00:09)
[2022-01-25] MEDS: Famotidine 200 MG/20 ML MDV 20 MG in 0.9% Normal Saline (Pres. free 8 ML 300 MG IV (00:12)
--- NOTE | 2022-01-25 00:48 | EX.ED.DYSGE1 ---
HPI History of Present Illness Chief Complaint: Abd Pain Narrative Narrative: Patient is a 41 female who presents to the hospital with complaint of upper abdominal pain. Patient states that this evening she ate dinner which was spaghetti with sausage sauce and findings developed sharp pain in her right upper quadrant and midepigastric region. She states the pain made her nauseous and have 1-2 bouts of vomiting. She states as time has passed her symptoms have spontaneously improved. She denies any fevers or chills diarrhea or dysuria. She states because of the severity of the pain she presents for evaluation [facility] Medical History (Updated 01/25/22 @ 00:[address] Uday Morgan, DO) Contact with or suspected exposure to other viral communicable disease Cough Depression Encounter for screening for COVID-19 Tendinitis URI (upper respiratory infection) Yeast infection of nipple, Home Medications cyclobenzaprine 10 mg tablet 10 mg PO BID PRN muscle spasm #10 tabs 05/21/21 [Rx Last Taken Unknown] diclofenac sodium 75 mg tablet,delayed release 75 mg PO DAILY 05/21/21 [History Last Taken Unknown] gabapentin 600 mg tablet 600 mg PO TID 05/21/21 [History Last Taken Unknown] prednisone 20 mg tablet 60 mg PO DAILY #12 tabs 05/21/21 [Rx Last Taken Unknown] oxycodone-acetaminophen 5 mg-325 mg tablet (Percocet) 1 tab PO Q6H PRN pain 3 days #12 tabs 01/25/22 [Rx Last Taken Unknown] Allergy/AdvReac Type Severity Reaction Status Date / Time No Known Allergies Allergy Verified 01/24/22 21:43 Family History Other Diabetes Heart disease Surgical History History of section History of hysterectomy History of tubal ligation Social History Smoking Status: Never smoker second hand exposure: Yes alcohol intake: never substance use type: does not use ROS ROS ED Constitutional Constitutional ED: Denies chills or fever(s) ENT ENT ED: Denies sore throat Cardiovascular Cardiovascular: Denies chest pain Respiratory/Chest Respiratory/Chest: Denies cough or dyspnea Gastrointestinal Gastrointestinal: Reports abdominal pain, nausea and vomiting; Denies diarrhea Genitourinary Genitourinary ED: Denies dysuria Musculoskeletal Musculoskeletal: Denies back pain or myalgias Integumentary Denies rash Neurologic Neurologic: Denies headache(s) Hematologic/Lymphatic Hematologic/Lymphatic: Denies easy bleeding or easy bruising EXAM Physical Exam Const Vital Signs: 01/24/22 21:40 01/24/22 23:54 Temperature 97.9 F Temperature Source Temporal Pulse Rate 90 78 Respiratory Rate 18 14 Blood Pressure 119/85 H 121/81 H Blood Pressure Mean 96 94 Pulse Ox 98 98 Oxygen Delivery Method Room Air Room Air Positive well nourished, well developed and obese General Appearance ED: well developed Nutritional Appearance: obese HEENT Reports moist mucous membranes Eyes PERRL and EOMs intact bilaterally General Eye ED: Negative for scleral icterus Neck supple Resp normal respiratory effort and clear to auscultation bilaterally Cardio regular rate and regular rhythm Rate: other Other Details: Radial pulses are plus 2 out of 4 bilaterally are equal and symmetric GI non-tender and non-distended GI Narrative: Abdomen is obese soft and nondistended with normoactive bowel sound. There is pain with palpation in the midepigastric region without voluntary guarding or rigidity. No fluid wave or pulsatile mass. Auscultation: normoactive bowel sounds Palpation: soft Back/Spine no CVA tenderness Extremity normal to inspection Extremity Narrative: No asymmetric edema no pitting edema negative Homans' sign bilaterally Neuro oriented x3, CN's II-XII intact bilaterally and no sensory deficits noted Sensorium / Orientation: alert Psych mental status grossly normal Skin no rashes or lesions noted General Skin Exam: Negative for jaundice MDM MDM MDM Narrative Medical decision making narrative: Present to the ER with stable vitals. She reported abdominal pain after eating and it was in the midepigastric region concerning for possible gallbladder or pancreatic issues. Secondary to this basic blood work and a gallbladder ultrasound was obtained. Labs revealed leukocytosis but otherwise no clinically significant findings. Ultrasound did confirm a gallstone without secondary changes to suggest acute cholecystitis. As the patient has stable/normal liver enzymes and otherwise reports that her pain spontaneously improved and not feel there is need for further evaluation in the ER and she can be silly discharged back to his home for further evaluation. Lab Data Attestation: I reviewed the patient's lab results. Labs: Laboratory Results - last 24 hr 01/24/22 01/24/22 01/24/22 21:46 22:00 22:00 WBC 15.0 H RBC 4.97 Hgb 15.1 H Hct 44.9 MCV 90.3 MCH 30.4 MCHC 33.6 RDW Std Deviation 45.5 H RDW Coeff of Shameka 13.7 Plt Count 257 MPV 10.8 Immature Gran % (Auto) 0.500 Neut % (Auto) 68.8 Lymph % (Auto) 25.1 Haines % (Auto) 3.9 Eos % (Auto) 1.4 Baso % (Auto) 0.3 Absolute Neuts (auto) 10.3 H Absolute Lymphs (auto) 3.75 Nucleated RBC % 0 Sodium 139 Potassium 4.0 Chloride 110 H Carbon Dioxide 22.0 Anion Gap 7 BUN 14 Creatinine 0.77 Estim Creat Clear Calc 84.70 Est GFR (MDRD) Af Amer 107 Est GFR (MDRD) Non-Af 88 BUN/Creatinine Ratio 18.1 Glucose 99 Calcium 8.9 Total Bilirubin Direct Bilirubin AST ALT Alkaline Phosphatase Total Protein Albumin Globulin Lipase Serum , Qual Urine Color Straw Urine Clarity Sl. Cloudy Urine pH 8.0 Ur Specific [place] 1.015 Urine Protein Negative Urine Glucose (UA) Normal Urine Ketones Negative Urine Occult Blood Negative Urine Nitrite Negative Urine Bilirubin Negative Urine Urobilinogen Normal Ur Leukocyte Esterase Negative Urine RBC 0 SEEN Urine WBC 0 SEEN Ur Squamous Epith Cells 0 SEEN Ur Transition Epith Cell 0-5 SEEN Urine Bacteria 1+ Urine Mucus 0 SEEN 01/24/22 01/24/22 01/24/22 22:00 22:00 22:00 WBC RBC Hgb Hct MCV MCH MCHC RDW Std Deviation RDW Coeff of Shameka Plt Count MPV Immature Gran % (Auto) Neut % (Auto) Lymph % (Auto) Haines % (Auto) Eos % (Auto) Baso % (Auto) Absolute Neuts (auto) Absolute Lymphs (auto) Nucleated RBC % Sodium Potassium Chloride Carbon Dioxide Anion Gap BUN Creatinine Estim Creat Clear Calc Est GFR (MDRD) Af Amer Est GFR (MDRD) Non-Af BUN/Creatinine Ratio Glucose Calcium Total Bilirubin 0.20 Direct Bilirubin 0.06 AST 11 L ALT 30 Alkaline Phosphatase 71 Total Protein 6.7 Albumin 3.5 Globulin 3.2 Lipase 87 Serum , Qual NEGATIVE Urine Color Urine Clarity Urine pH Ur Specific [place] Urine Protein Urine Glucose (UA) Urine Ketones Urine Occult Blood Urine Nitrite Urine Bilirubin Urine Urobilinogen Ur Leukocyte Esterase Urine RBC Urine WBC Ur Squamous Epith Cells Ur Transition Epith Cell Urine Bacteria Urine Mucus Radiography Diagnostic Testing: Clinical Impression(s) from Imaging Studies Gallbladder Ultrasound 01/24/22 22:49 IMPRESSION: 1. Cholelithiasis without acute cholecystitis. 2. Hepatomegaly and hepatic steatosis. Electronically Signed: Uday Hicks MD at 23:57 EDT , Discharge Plan Triage Chief Complaint: Abd Pain ED Provider: Uday Morgan Dx/Rx/DC Orders Clinical Impression: Biliary colic, Cholelithiasis Instructions: What Are Gallstones, Gallstones Dc Prescriptions: New oxycodone-acetaminophen [Percocet] 5-325 mg tablet 1 tab PO Q6H PRN (Reason: pain) 3 Days Qty: 12 0RF No Action gabapentin 600 mg tablet 600 mg PO TID diclofenac sodium 75 mg tablet,delayed release (DR/EC) 75 mg PO DAILY prednisone 20 mg tablet 60 mg PO DAILY Qty: 12 0RF cyclobenzaprine 10 mg tablet 10 mg PO BID PRN (Reason: muscle spasm) Qty: 10 0RF Primary Care Provider: Beth Gallegos NP Referrals: Shankar Naranjo MD [Med Staff - Active Staff] - 3-5 Days Beth Gallegos NP, DEVELOPMENT ENGINEER-C [Primary Care Provider] - Activity Restrictions/Additional Instructions: Please follow-up with general surgery to discuss need for possible surgical removal of your gallbladder. If you develop a fever over 100.4 or have intractable pain please return for repeat evaluation Disposition Disposition: Home, Self Care Discharge Date/Time: 01/25/22 01:06
== END 2022-01-25 01:06 | disposition home or self-care (01) ==
PROVIDERS: Emergency Provider Emergency Medicine; PCP Nurse Practitioner Adult Health; Visit Provider Emergency Medicine
DX: K80.70 Calculus of gallbladder and bile duct without cholecystitis without obstruction (principal); E66.9 Obesity, unspecified
CPT/HCPCS: 76705; 80048; 80076; 81001; 83690; 84703; 85025; 99285; A4216; J3490

== ENCOUNTER 2022-02-13 10:42 | Day surgery (SDC) | payer MEDICAID, SELFPAY ==
[2022-02-13] VITALS (11 sets, daily range): BP systolic 100–124; BP diastolic 57–93; PULSE 59–82; RESP 16–20; TEMP 36.1–36.4; O2SAT 92–100; BMI 48.8
--- NOTE | 2022-02-13 | GALL_PTH ---
PATIENT: JOLENE LEE LOC: [facility] [place] U#:[id number] AGE/SX: 41/F ROOM: RE02/13/[address]: Dr. Rey Bowling MD : 1980 BED: DIS: 02/13/2022 SPEC #: [id number] RECD: 02/13/22 13:19 STATUS: ANGELINE MCDERMOTT #: [id number] JELANI: 02/13/22 00:[address]: Rey Bowling DEPT: SURGICAL PATHOLOGY RECD BY: Abhishek Rainey ENTERED: 02/14/22 08:55 SP TYPE: KWESI CARRERA DR: Beth Gallegos, REPEAT PHOTOCOMPOSING MACHINE OPERATOR-C Tissues: Gallbladder, NOS Procedures: Surgery Specimen Level III HEADER OPERATION: Laparoscopic cholecystectomy PRE-OP DIAGNOSIS: Cholelithiasis, biliary colic TISSUE SUBMITTED: Gallbladder MICROSCOPIC DIAGNOSIS Gallbladder, cholecystectomy: Chronic cholecystitis and cholelithiasis. A benign pericystic lymph node with reactive changes. SJ:nora 02/15/2022 MICROSCOPIC DESCRIPTION Slides are reviewed. GROSS DESCRIPTION Received is one container labeled with the patient's name and designated gallbladder. The specimen consists of a gallbladder measuring 9.5 cm in length and up to 3 cm in diameter. The external surface is pink-huff, smooth and glistening for the most part. Focally it is granular, hemorrhagic and contains cautery artifact. The gallbladder contains thick, green-yellow mucoid bile and one ovoid greenish-brown stone measuring 1.5 cm in greatest dimension. The mucosa is bile-stained and without any mass lesions. The gallbladder wall measures up to 0.5 cm in thickness. Present close to the cystic duct is an ovoid nodule, a possible lymph node, measuring 1.2 cm in greatest dimension. Interactive Digital Media Specialist sections from the gallbladder and the cystic duct including entire bisected nodule are submitted in one cassette. / OMAR:nora 02/14/2022 TC:3 CPT: 06174
[2022-02-13] MEDS: Lactated Ringers 1,000 ML 15 ML IV (11:00)
--- NOTE | 2022-02-13 12:03 | PCM.HP.BLA ---
History and Physical Date of Admission: 02/13/22 Intake Vital Signs ? 01/24/2221:40 01/29/2213:41 Height 5 ft 4 in 5 ft 4 in Weight: 270 lb 279 lb 4 oz BMI 46.3 47.9 BP 119/85 H 111/78 Blood Pressure Location ? Rt popliteal Position ? Sitting Respiration 18 17 Pulse 90 81 Pulse Source ? Monitor Temp 97.9 F 97.3 F L Temp Source Temporal Temporal Pulse Oximetry (%) 98 99 Oxygen Delivery Method ? room air Intake Visit Reasons:?GALLSTONES Chief Complaint: gallstones General Manager In Training Required: No Is patient in pain?: No Allergies No Known Allergies Allergy (Verified 01/29/22 13:43) Medications gabapentin 600 mg tablet 600 mg PO TID 05/21/21 [History Confirmed 01/29/22] oxycodone-acetaminophen 5 mg-325 mg tablet (Percocet) 1 tab PO Q6H PRN pain 3 days #12 tabs 01/25/22 [Rx] guaifenesin 600 mg tablet, extended release 12 hr 600 mg PO BID 01/29/22 [History Confirmed 01/29/22] meloxicam 15 mg tablet 15 mg PO DAILY 01/29/22 [History Confirmed 01/29/22] PFSH Medical History? Contact with or suspected exposure to other viral communicable disease Cough Depression Encounter for screening for COVID-19 Tendinitis URI (upper respiratory infection) Yeast infection of nipple, Surgical History? History of section History of hysterectomy History of tubal ligation Family History?(Updated 01/29/22 @ 13:41 by Jolie Martins) Aunt CancerMother Diabetes Heart disease Myocardial infarctionGrandfather Heart disease Myocardial infarctionFather Heart disease Myocardial infarction Social History?(Updated 01/29/22 @ 13:38 by Jolie Martins) Smoking Status:? Never smoker second hand exposure:? Yes alcohol intake:? never substance use type:? does not use HPI HPI HPI: Patient is a 41-year-old female here for right upper quadrant pain.? She was in the emergency room recently and was found to have a gallstone.? She says that this pain happens after eating and usually subsides while she is sleeping.? She does describe radiation to the right shoulder.? She also describes nausea but no vomiting. ROS General General: Yes fatigue; No weight change, appetite, colon cancer, breast cancer or weakness HEENT HEENT: No difficulty swallowing, eye injury, eye surgery, swollen glands or hoarseness Endo Endocrine: No thyroid disease, diabetes mellitus, thyroid cancer, Hair loss, heat intolerance or cold intolerance Skin Skin: Yes changing moles; No rash Breast Breast: No left breast lump, right breast lump, nipple discharge, breast pain, abnormal mammogram, abnormal US or breast enlargement Musc Musculoskeletal: No back problems, arthritis, rheumatoid arthritis, gout or joint pain Cardio Cardiovascular: No murmur, pacemaker, heart disease, atrial fibrillation, high blood pressure, heart attack, heart stent, palpitations, shortness of breat with exertion or chest pain Psych Psychiatric: No depression, anxiety or hearing voices Resp Respiratory: No shortness of breath, No sleep apnea, No cough, No COPD, No asthma, No emphysema and No wheezing Gastro Gastrointestinal: No abdominal pain, Yes nausea or vomiting, Yes diarrhea, No constipation, No blood in stool, No acid reflux, No hemorrhoids, No ulcers, Yes gallbladder problem and No black,tarry stools Pramod Hematologic: No blood thinners, No blood disorders, No bleeding, No anemia and No blood clots Neuro Neurologic: No system reviewed and no additional complaints, except as documented, No as per HPI, No abnormal gait, No abnormal hearing, No abnormal movements, No abnormal speech, No behavioral changes, No burning sensations, No confusion, No convulsions, No disequilibrium, No dizziness, No localized weakness, No frequent falls, No headache(s), No lack of coordination, No loss of vision, No memory loss, No numbness, No other visual disturbances, No radicular pain, No restless legs, No sensory deficit, No syncope, No tingling, No tremor(s), No weakness and No other Exam Const General: cooperative Orientation: alert and oriented x3 HENMT Head: normal to inspection Neck Neck: normal visual inspection and full ROM Chest Chest palpation & inspection: normal inspection of the chest Resp Effort & Inspection: normal respiratory effort Auscultation: clear to auscultation bilaterally Cardio Rate: regular rate Rhythm: regular rhythm GI Inspection: non-distended Palpation: soft and nontender Skin General: no rashes or lesions noted Neuro General: patient alert and patient oriented x3 Extrem General: full ROM Psych Appearance: grossly normal Mental Status: mental status grossly normal Assessment and Plan Assessment and Plan (1) Biliary colic: ?Status:?Acute (2) Cholelithiasis: ?Status:?Acute Plan Patient has a rather large gallstone which is likely causing her biliary colic.? I recommended laparoscopic cholecystectomy.? I discussed the procedure in detail with the patient.? I discussed the risks, benefits, and alternatives of the procedure.? I discussed the risks including but not limited to bleeding, infection, injury to surrounding organs such as the liver, bile duct, bowels.? I did discuss the possibility of having to convert to an open procedure as well as the possibility that if any injuries occurred this may necessitate further surgery at a tertiary care center. Rey Bowling MD Pager: [facility] [address] [place] [address], [address] [place] [address] Office: I Have seen and reexamined the patient and there are no changes.
[2022-02-13] MEDS: Cefotetan 2 GM in 0.9% NS 100 ML IV (12:24)
--- NOTE | 2022-02-13 13:08 | OP.PCM_ITS ---
Report of Operation Date of Procedure: 02/13/22 Pre-Operative Diagnosis: Cholelithiasis and biliary colic Post-Operative Diagnosis: Same Surgery/Procedure Performed:: Laparoscopic cholecystectomy Description of Surgical Findings:: Unable to perform cholangiograms due to stone impacted in duct Specimen's removed: Gallbladder Description of Procedure: After obtaining informed consent patient was brought back to the operating room. General anesthesia was induced. The abdomen was prepped and draped in usual sterile fashion. A small midline incision was made superior to the umbilicus and deepened to the level of fascia. Using Visiport technique a 5 mm port was placed into the abdomen. The abdomen was then insufflated and the abdomen was inspected for injuries and there were none. Next under direct visualization three 5-mm ports were placed one subxiphoid and 2 subcostal. Next the gallbladder was elevated and retracted toward the right shoulder. The per itoneum was stripped from the gallbladder. The infundibulum was located and retracted laterally. The supraumbilical port was upsized to a 12 mm port. Next the triangle of Calot was dissected and the cystic duct and cystic artery were identified. There is a large stone impacted in the neck of the gallbladder and cholangiograms were unable to be performed. Three hemolock clips were placed across the cystic duct. The cystic duct was then divided leaving 2 clips on the stump. The cystic artery was clipped and divided in the same fashion. The hook cautery was then used to take the gallbladder off of the gallbladder bed. Hemostasis was obtained. Gallbladder fossa was irrigated and no active bleeding or bile leakage was noted. Next the camera was introduced in the subxiphoid port. An Endopouch bag was placed through the umbilical port and the gallbladder was placed into it. The gallbladder was then removed through the umbilical incision. The camera was then reinserted through the umbilical port. The gallbladder fossa was inspected once more and noted to be hemostatic with no leaking bile. The abdomen was suctioned dry. The umbilical port was removed as was the specimen and then the umbilical port fascia was closed using a Taran Silva needle and an 0 Vicryl suture. The 5 mm ports were removed. The umbilical port site was irrigated local anesthetic was administered to all the incisions. All the incisions were closed with interrupted subcuticular 4-0 Monocryl sutures followed by Steri-Strips and dressings. The patient was awoken and taken to PACU in stable condition. Admit VTE Documentation VTE Mechan Device Prophylaxis: SCD's
--- NOTE | 2022-02-13 13:10 | EX.PCM.DISCH ---
Discharge Instructions Procedure Gallbladder Diet Discharge Diet: Light diet - advance as tolerated Activity Discharge Activity: May Not Drive (for 2-3 days or while taking narcotic pain medications.) and - (Do not drive, work heavy equipment or sign legal documents for 24 hours.) May shower in (days): 1 Lifting Restrictions: 15 lbs for 3 weeks Additional Activity Instructions:: Pain medication may cause nausea. You should typically eat light foods as you take your pain medications. Pain medication may also cause constipation. If this is a problem for you, please discuss with your doctor. Dressing / Incision Call your doctor if your incision/area has: Continuous Slow Oozing, Sudden Increased Bleeding, Increased Pain/ Swelling, Increased Redness and Foul Smelling Discharge Call your doctor if you observe: Fever of 101 or Higher Suture Line Care: Avoid Pulling/Pushing and Avoid Pinching/Bending Remove Dressing in: 2 days Cleanse incision/area with: Soap & Water Additional Dressing/Incision Instructions:: Leave operative bandaids on for 2 days. When you remove dressing, leave Steri-Strips on until your follow-up appointment, or until the Steri-Strips fall off on their own. Follow Up Care Please Follow Up With: Rey Bowling MD When: Please call to schedule 2 week follow up appointment. [phone] Test Results: Test results from this visit will be discussed in further detail at your follow-up appointment, if applicable. Discharge Plan Admission Attending Provider: Rey Bowling Primary Care Provider: Beth Gallegos NP Discharge Orders/Prescriptions Prescriptions: New oxycodone 5 mg tablet 5 - 10 mg PO Q4H PRN (Reason: pain) 5 Days Qty: 30 0RF No Action meloxicam 15 mg tablet 15 mg PO DAILY gabapentin 600 mg tablet 600 mg PO TID methocarbamol 500 mg tablet 500 mg PO PRN PRN (Reason: Muscle Spasm) Label Comments: TAKE 1 (ONE) TABLET (500 MG TOTAL) BY MOUTH 2 (TWO) TIMES A DAY NEEDED FOR MUSCLE SPASMS . oxycodone-acetaminophen 5-325 mg tablet 1 tab PO PRN PRN (Reason: Pain) Label Comments: TAKE 1 TABLET BY MOUTH EVERY 6 HOURS NEEDED FOR 3 DAYS Referrals / Follow Up: Beth Gallegos NP, [employer] [Primary Care Provider] - Disposition Disposition (needs filled in before D/C Order can be placed): Home, Self Care
[2022-02-13] MEDS: oxyCODONE 5 MG Tablet PO (15:57)
== END 2022-02-13 17:06 | disposition home or self-care (01) ==
LOC: SDC 10:43 → AC 10:44
PROVIDERS: PCP Nurse Practitioner Adult Health; Referring Provider Surgery; Visit Provider Surgery
PROC: (CPT 47610; principal; 2022-02-13 11:50)
DX: K80.10 Calculus of gallbladder with chronic cholecystitis without obstruction (principal); Z87.891 Personal history of nicotine dependence; K21.9 Gastro-esophageal reflux disease without esophagitis
CPT/HCPCS: 47562; 00790; 88304; 93005; J7120; J2405

== ENCOUNTER → 2022-03-25 | Outpatient (CLI) | payer MEDICAID, SELFPAY | END | disposition home or self-care (01) | PROVIDERS: PCP Nurse Practitioner Adult Health | DX: F17.201 Nicotine dependence, unspecified, in remission (principal) | CPT/HCPCS: 36415 ==

== ENCOUNTER 2022-08-29 10:30 | Outpatient (RCR) | payer MEDICAID, SELFPAY ==
--- NOTE | 2022-07-03 11:57 | HP.PTEVAL ---
Patient's Visit Information JOLENE LEE is a 41 year old F referred to Physical Therapy by SHANTA BOCANEGRA with a diagnosis of Triple Arthrodesis 04/24/22. Date of Evaluation: 07/03/22 Physical Therapist: Joy Santillan DPT - Visit Plan Frequency: 2-3x /Week Duration: 4 Weeks Plan: Per MD- Gradually inc WB from 10-100% over 4-6 IN BOOT then wean out of boot. HEP Given IE: Seated HR/TR, seated weight shifts, seated inversion/eversion, desensitization - Subjective Triple Arthrodesis of the Left foot on 04/24/[address] Bocanegra. She has been NWB and in a splint for the first 2-3 weeks then went into a boot. She can only wear it on a good day. She has not been wearing the boot due to the pain and nerve issues. If there is pressure on the foot there is awful pain. She spoke to the MD about it and had an EMG which showed nerve damage that was the reperable kind. She went to pain mgmt and it helps but its not better. She has been on this new medication for about 2 weeks. Was able to get in/out of the boot over the last 2 weeks. She wants to start weaning into weight bearing on the boot and get rid of the knee scooter. Worst: 4/10 in the last couple of days. Agg: brushing across it, breeze the great toe is a sensitive spot- and right between the two incisions. Other times its out of no where it just hurts. She has not done anything other than medication and ankle DF/PF. Prior to the new meds she could not put her foot down. Best: 0/10 Eases: nothing makes it better. She was on gabapentin prior to surgery but mainly related to orthopedic issues. Describes the pain as electrical pain- shocking- she does have some dull and achyness in the gastroc. Fully I prior to surgery. 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 Sleep: disturbed- sleeps in a bed with foot propped up. She does have some knee discomfort from the knee scooter but no hip or back pains. PMHx: none. Meds: pregavolin, tramadol as needed - Objective Posture: fair throughout IE. Gait: no assessed due to no boot today Girth: Figure 8: 57 cm Mets: 24.5 cm Mall:29 cm. ROM: DF: neutral, PF: 30 degrees, Inv: 30 degrees, Ever: 10 deg. Strength: Core: fair, Hip: 4/5 throughout, Knee: 5/5, Ankle: 4/5 in available range. Flex: Gastroc: severe, HS: moderate. Palpation: tender throughout ankle and across top of foot. Observation: incisions well healed. - Balance/Special Test Scores Lower Extremity Functional Score: 13 - Goals Goal 1:: Patient will be I with HEP and progression Goal Time Frame: 4-6 Weeks Goal 2:: Patient will SLS in boot for 15 sec without loss of balance Goal Time Frame: 4-6 Weeks Goal 3:: Patient will ambulate >300 feet with a normalized gait pattern Goal Time Frame: 4-6 Weeks Goal 4:: Patient report 80% improvement Goal Time Frame: 4-6 Weeks - Rehabilitation Potential Physical Therapy Diagnosis: Patient presents s/p triple arthrodesis 04/24/22- she has hypersensitivity- decreased ankle ROM, strength, proprioception and flex leading to abnormal gait and dec ability to participate in ADL's Rehabilitation Potential: Good - Anticipated Interventions Patient/Client Instruction: Educate patient on: Benefits of Fitness Program Therapeutic Exercise to Include: Strength training, Endurance training, Balance training, Coordination, Agility training, Body mechanics, Postural training, Flexibilty training, Gait and locomotor training, Neuromotor development, Passive ROM, Active ROM, Dynamic Lumbar Stabilization, Scapular Strength/Stabilization TENS: Yes Cryotherapy (ice pack, ice massage): Yes Thermo therapy (hot pack): Yes Thank you for the opportunity to evaluate your patient. For Medicare and Medicare HMO plans, please review the plan of care and approve it. It will need to be FAXED BACK to us at [phone] for Medicare purposes. For Medicare only, by signing this I certify the plan of care. Please let me know if there are questions or concerns regarding this plan of care. Physician Signature: Date:
--- NOTE | 2022-08-01 10:53 | HP.PTREVAL ---
SHANTA MARTINEZ, It has been my pleasure to treat JOLENE LEE over the last 9 visits for Triple Arthrodesis 04/24/22. Please see the progress note below for an update on the physical therapy plan of care! Subjective: Patient reports that its getting better- she has some tenderness along the scar-she has some tenderness on the heel. She feels oddness and discomfort if she puts her foot on the floor wrong. Goes back to the MD on Friday. She is still currently in the boot all the time. She does not sleep in the boot. Worst pain in the last week: 08/19- She does not have any moments of being painfree- lowest is a -06/21 and only takes Ibuprofen. She is worse when she stands in one spot. No questions or concerns on ex at home. Objective/Function: Posture: fair throughout IE. Gait: weight shifting without boot ROM: DF: 10 PF: 50 degrees, Inv: 30 degrees, Ever: 10 deg. Strength: Core: fair, Hip: 4/5 throughout, Knee: 5/5, Ankle: 4+/5 in available range. Flex: Gastroc: severe, HS: moderate. Palpation: not tender SLS: 3-5 seconds Observation: incisions well healed. Plan Plan: 08/01/22: Pt sees MD Friday- will progress as allowed by MD- 2x a week for 4 weeks- encouraged her to get 100% in the boot. Per MD- Gradually inc WB from 10-100% over 4-6 week IN BOOT then wean out of boot Balance/Gait/Functional tests - Balance/Special Test Scores Lower Extremity Functional Score: 76 Goals Goal 1:: Patient will be I with HEP and progression Goal Time Frame: 4-6 Weeks Goal Progress: Progressing Goal 2:: Patient will SLS in boot for 15 sec without loss of balance Goal Time Frame: 4-6 Weeks Goal Progress: Progressing Goal 3:: Patient will ambulate >300 feet with a normalized gait pattern Goal Time Frame: 4-6 Weeks Goal Progress: Progressing Goal 4:: Patient report 80% improvement Goal Time Frame: 4-6 Weeks Goal Progress: Progressing Anticipated Interventions Patient/Client Instruction: Educate patient on: Benefits of Fitness Program Therapeutic Exercise to Include: Strength training, Endurance training, Balance training, Coordination, Agility training, Body mechanics, Postural training, Flexibilty training, Gait and locomotor training, Neuromotor development, Passive ROM, Active ROM, Dynamic Lumbar Stabilization, Scapular Strength/Stabilization TENS: Yes Cryotherapy (ice pack, ice massage): Yes Thermo therapy (hot pack): Yes Please do not hesitate to contact me at [phone] by phone or if you have questions or concerns regarding this new plan of care! Sincerely, MIKE YbarraT
--- NOTE | 2022-08-29 11:23 | HP.PTDCSUM ---
It has been my pleasure to treat JOLENE LEE referred by SHANTA MARTINEZ, with the diagnosis of Triple Arthrodesis 04/24/22 for a total of 15 visit(s). Discharge Date: Please see the following information for a summary of their discharge status. Subjective: Patient reports that she is out of the boot completely- she is wearing tennis shoes all the time. No pain - except when she gets up in the AM and it goes away with Ibuprofen. There is nothing she can't do except run- she feels that she is 100% back to normal. Left ankle/foot Pain Intensity (Out of 10): 2 % Improvement: 100 Objective/Function: Posture: fair throughout. Gait: no deviation in shoe today Girth: Figure 8: 56 cm Mets: 24.5 cm Mall:29 cm. ROM: DF: neutral, PF: 50 degrees, Inv: 30 degrees, Ever: 10 deg. Strength: Core: fair, Hip: 4+/5 throughout, Knee: 5/5, Ankle: 5/5 in available range. Flex: Gastroc: mod, HS: moderate. Palpation: not tender Observation: incisions well healed. Goal 1:: Patient will be I with HEP and progression Goal Progress: Goal Met Goal 2:: Patient will SLS in boot for 15 sec without loss of balance Goal Progress: Progressing Goal 3:: Patient will ambulate >300 feet with a normalized gait pattern Goal Progress: Goal Met Goal 4:: Patient report 80% improvement Goal Progress: Goal Met Plan: 08/29/22: Discharge to I HEP. 08/06/22: Pt reports able to progress to shoe. 08/01/22: Pt sees Friday- will progress as allowed by MD- 2x a week for 4 weeks- encouraged her to get 100% in the boot. Per MD- Gradually inc WB from 10-100% over 4-6 week IN BOOT then wean out of boot If there are questions or concerns regarding this patient's physical therapy, please feel free to call me at [phone]. Thank you for the referral of this patient. Sincerely, Joy Santillan, DPT Balance/Gait/Functional tests - Balance/Special Test Scores Lower Extremity Functional Score: 64
== END 2022-08-29 15:00 | disposition home or self-care (01) ==
LOC: PT 10:30
DX: M21.42 Flat foot [pes planus] (acquired), left foot (principal); M79.672 Pain in left foot; R20.2 Paresthesia of skin
CPT/HCPCS: 97110; 97140; 97162; 97164

== ENCOUNTER 2023-03-24 10:00 | Outpatient (RCR) | payer MEDICAID, SELFPAY ==
--- NOTE | 2023-02-18 09:52 | HP.PTEVAL_ITS ---
Patient's Visit Information Visit Information Visit Information: JOLENE LEE is a 42 year old F referred to Physical Therapy by MARLENA PRINCE with a diagnosis of Left Foot Pain. Date of Evaluation: 02/18/23 Physical Therapist: Joy Santillan DPT Visit Plan Frequency: 2x /Week Duration: 4 Weeks Plan: Aquatics- Focus on LE and Core Strength/Stabilization HEP Given IE: reviewed gastros stretch towel, 4 way tband and seated HR/TR Subjective Subjective: Triple Arthrodesis of the Left foot on 04/24/22 then she had a 2nd surgery to remove hardware from 1st surgery that was rubbing on a nerve in the heel. The surgery went well. Now the problem is pain in both ankles- the right one is sore from being favored for so long- it feels really stiff. The left one still bother her as well. The pain mgmt MD wants her to try aquatic therapy to try to unload them. She has gained weight since the surgery due to being immobile and feels that's part of it due to the surgeries. Worst: 8/10 Agg: stepping, uneven surfaces, stairs, sideways stepping, jumping, running. Best: 2/10 Eases: oxycodone (pain mgmt is adjusting medications), after first therapy session she had at . Describes her pain as sharp. Pain is located in the ankle itself. The first 2 toes are numb on the left foot. She has had recent x- rays of the left foot but not on the right. She goes back in April. Work: not currently working- she can't be active enough to work. Sleep: not disturbed. Patient reports she has orthotics in her shoes - wears Hokas but does not have them in these shoes. PMHx/Meds: no longer on neuropathy medication. Objective Objective: Posture: Forward head, rounded shoulders and increased kyphosis- pt is overweight- she can correct posture but is unable to maintain throughout treatment session Gait: antalgic- right toes turned out to to the side with decreased stance on the right LE with poor heel/toe strike- slow wenceslao HR/TR: able with UE A- decreased ROM bilateral with reports of pain SLS: Left: 3 seconds Right: 2 seconds both with reports of pain and instability Stairs: asc/desc 8 recip with 2 HR- Asc: bilat HR with sig UE use, Desc: decreased control Palpation: tender along medial and lateral joint line and along mortise Observation: left incision healed ROM: Ankle Left DF: 5 degrees, PF: 50 degrees, Inver: 20 degrees Ever: 10 degrees, Right: DF: 10 degrees, PF: 60 degrees, Inver: 30 degrees Ever: 20 degrees, Strength: Core: poor. Hip: 4-/5 throughout, Knee: 5/5, Ankle: 4+/5 throughout with right having pain with resisted DF Girth: Left Figure 8: 55.5 cm, Malls: 28 cm Balance/Special Test Scores Lower Extremity Functional Score: 37 Goals Goal 1:: Patient will report participation in home exercise program activities a minimum of 5 days per week, as adjunct to skilled physical therapy intervention in preparation for independent home management upon discharge. Goal Time Frame: 4-6 Weeks Goal 2:: Patient will report an increase of 9 points on the LEFS to show minimal clinical significant difference on patients functional outcome measure. Goal Time Frame: 4-6 Weeks Goal 3:: Patient will stand on even surface with eyes open without loss of balance for 30 seconds to demonstrate improved balance and increase safety with ADL?s. Goal Time Frame: 4-6 Weeks Goal 4:: Patient will descend 4+ stairs reciprocally with a single handrail to demonstrate increased LE functional strength and ease community mobility. Goal Time Frame: 4-6 Weeks Goal 5:: Patient will ascend 4+ stairs reciprocally with a single handrail to demonstrate increased LE functional strength and ease community mobility. Goal Time Frame: 4-6 Weeks Goal 6:: Patient will ambulate >300 feet with a normalized gait pattern to ease ADL's and community mobility Goal Time Frame: 4-6 Weeks Rehabilitation Potential Physical Therapy Diagnosis: Patient presents with hypomobility- she has decreased ankle ROM, flexibility, proprioception LE and core strength/stabilization, increased pain and increased pain with gait and ADL's Rehabilitation Potential: Good Anticipated Interventions Patient/Client Instruction: Educate patient on: Benefits of Fitness Program Therapeutic Exercise to Include: Strength training, Endurance training, Balance training, Coordination, Agility training, Body mechanics, Postural training, Flexibilty training, Gait and locomotor training, Neuromotor development, In an aquatic setting, Dynamic Lumbar Stabilization and Scapular Strength/Stabilization For the Purpose of:: To improve muscle performance and motor function Text: Thank you for the opportunity to evaluate your patient. For Medicare and Medicare HMO plans, please review the plan of care and approve it. It will need to be FAXED BACK to us at [phone] for Medicare purposes. For Medicare only, by signing this I certify the plan of care. Please let me know if there are questions or concerns regarding this plan of care. Physician Signature: Date:
--- NOTE | 2023-03-12 13:02 | HP.PTREVAL ---
Re-Evaluation Intro: MARLENA PRINCE, It has been my pleasure to treat JOLENE LEE over the last 9 visits for Left Foot Pain. Please see the progress note below for an update on the physical therapy plan of care! Subjective Subjective: Water is going well. Her ankles feel much looser and she feels that she walks much easier. Some days that she does a lot extra she will need meds if she does some extra walking. Objective Objective/Function: SLB L 2 seconds and R SLB 15 seconds Stairs: up and down recip with 1 hand rail (slower to go down the stairs eccentric). Gait: walks with equal stance time on B LE's for shorter 150 feet distance. Plan Plan Plan: 4 additional visits for HEP for strength and stability of B ankles, balance and proprioception, stairs (harder to descend stairs so eccentric's) with HEP (++++Pt has a treadmill at home and would like to be able to use it and wants to try it here first). Balance/Gait/Functional tests Balance/Special Test Scores Lower Extremity Functional Score: 64 Goals Goals Goal 1:: Patient will report participation in home exercise program activities a minimum of 5 days per week, as adjunct to skilled physical therapy intervention in preparation for independent home management upon discharge. Goal Time Frame: 4-6 Weeks Goal Progress: Progressing Goal 2:: Patient will report an increase of 9 points on the LEFS to show minimal clinical significant difference on patients functional outcome measure. Goal Time Frame: 4-6 Weeks Goal 3:: Be able to SLB on the L LE for 15 seconds Goal Time Frame: 4-6 Weeks Goal 4:: Patient will descend 4+ stairs reciprocally with a single handrail to demonstrate increased LE functional strength and ease community mobility. Goal Time Frame: 4-6 Weeks Goal 5:: Patient will ascend 4+ stairs reciprocally with a single handrail to demonstrate increased LE functional strength and ease community mobility. Goal Time Frame: 4-6 Weeks Goal Progress: Goal Met Goal 6:: Patient will ambulate >300 feet with a normalized gait pattern to ease ADL's and community mobility Goal Time Frame: 4-6 Weeks Goal Progress: Progressing Anticipated Interventions Anticipated Interventions Patient/Client Instruction: Educate patient on: Benefits of Fitness Program Therapeutic Exercise to Include: Strength training, Endurance training, Balance training, Coordination, Agility training, Body mechanics, Postural training, Flexibilty training, Gait and locomotor training, Neuromotor development, In an aquatic setting, Dynamic Lumbar Stabilization and Scapular Strength/Stabilization For the Purpose of:: To improve muscle performance and motor function Re-Evaluation Ending Re-evaluation ending: Please do not hesitate to contact me at [phone] by phone or if you have questions or concerns regarding this new plan of care! Sincerely, Ellie Londono, MPT
--- NOTE | 2023-03-24 12:07 | HP.PTDCSUM ---
Discharge Summary D/C summary: It has been my pleasure to treat JOLENE LEE referred by MARLENA PRINCE, with the diagnosis of Left Foot Pain for a total of 11 visit(s). Discharge Date: Please see the following information for a summary of their discharge status. Subjective Subjective: Pt states good tolerance to last session, just some muscle fatigue the following day. No questions with HEP - states it's going well and she is compliant. Pain RLE: Pain Intensity (Out of 10): 0 LLE\: Pain Intensity (Out of 10): 0 Overall Improvement % Improvement: 75 Objective Objective/Function: Small progressions made to current exercise program. Courtney all fairly well - struggles the most with eccentric fwd step downs. Goals Goal 1:: Patient will report participation in home exercise program activities a minimum of 5 days per week, as adjunct to skilled physical therapy intervention in preparation for independent home management upon discharge. Goal Progress: Progressing Goal 2:: Patient will report an increase of 9 points on the LEFS to show minimal clinical significant difference on patients functional outcome measure. Goal 3:: Be able to SLB on the L LE for 15 seconds Goal 4:: Patient will descend 4+ stairs reciprocally with a single handrail to demonstrate increased LE functional strength and ease community mobility. Goal 5:: Patient will ascend 4+ stairs reciprocally with a single handrail to demonstrate increased LE functional strength and ease community mobility. Goal Progress: Goal Met Goal 6:: Patient will ambulate >300 feet with a normalized gait pattern to ease ADL's and community mobility Goal Progress: Progressing Plan Plan: 4 additional visits for HEP for strength and stability of B ankles, balance and proprioception, stairs (harder to descend stairs so eccentric's) with HEP (++++Pt has a treadmill at home and would like to be able to use it and wants to try it here first). D/C Information d/c sentence: If there are questions or concerns regarding this patient's physical therapy, please feel free to call me at [phone]. Thank you for the referral of this patient. Sincerely, Ellie Londono, MPT Balance/Gait/Functional tests Balance/Special Test Scores Lower Extremity Functional Score: 64 Improvement % Improvement: 75
== END 2023-03-24 12:27 | disposition home or self-care (01) ==
LOC: PT 10:00
DX: R20.2 Paresthesia of skin (principal); M79.672 Pain in left foot; M21.42 Flat foot [pes planus] (acquired), left foot
CPT/HCPCS: 97110; 97113; 97162; 97530

== ENCOUNTER 2023-09-23 12:00 | Emergency (ER) | payer MEDICAID, SELFPAY ==
[2023-09-23 12:00] VITALS: BP 111/77; PULSE 79; RESP 18; TEMP 36.6; O2SAT 99; BMI 39.5
[2023-09-23 12:04] VITALS: O2SAT 96
--- NOTE | 2023-09-23 12:45 | CT_ITS ---
STUDY: CT BRAIN WITHOUT CONTRAST REASON FOR EXAM: Female, 42 years old. Headache RADIATION DOSAGE (If Supplied By Facility): CTDIvol = ( 47.06 ) mGy, DLP = ( 837.39 ) mGycm TECHNIQUE: Transaxial CT imaging of the brain was performed without administration of intravenous contrast material. Individualized dose optimization techniques were used for this CT. COMPARISON: No relevant priors. FINDINGS: Normal soft tissue structures. Normal calvarium. Normal size ventricles and extra-axial spaces for the patient''s age. Normal white matter tracts of the cerebral hemispheres. Normal basal ganglia and thalami. Normal brainstem. Normal cerebellum. There is no intracranial hemorrhage. There are no findings of an acute ischemic infarction. Normal visualized paranasal sinuses. CT/Brain/Head without Contrast IMPRESSION: Normal unenhanced CT scan of the brain. Electronically Signed: Reed Cordova MD at 14:28 EDT ,
--- NOTE | 2023-09-23 12:47 | EX.ED.DYSGE1 ---
HPI History of Present Illness Chief Complaint: Syncope Informant: patient and spouse/S.O. Narrative Narrative: Presents with the mother for evaluation syncopal episode occurring yesterday around months. 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 Prodromal lightheaded symptoms. There is no prodromal chest pains or palpitations. She other states not more than 10 minutes however they did not time this. She woke up confused. She has been fatigued all day. She had slight headache 2 days prior to this in the right side. Denies cough. Denies vomiting or diarrhea. Denies urinary symptoms. Hysterectomy in the past. No history of similar. She is on metformin once a day for prediabetes along with phentermine for weight loss. This has been daily for the last 5 months there has been no increasing dosings. Presents here due to still feeling fatigued. There is been no tongue biting no incontinence of urine or stools. Prior similar symptoms: No PFSH PFSH Medical History Post-menopausal History of steroid therapy Arthritis Gastric reflux Former smoker History of pain when walking History of edema Encounter for screening for COVID-19 URI (upper respiratory infection) Contact with or suspected exposure to other viral communicable disease Cough Tendinitis Depression Yeast infection of nipple, Home Medications ?Medication ?Instructions ?Recorded ?Last Taken ?Type meloxicam 15 mg tablet 15 mg PO DAILY 01/29/22 Unknown History hydrocodone-acetaminophen 5-325mg tab PO 04/11/23 Unknown History 5mg-325mg multivitamin 1 tab PO DAILY 04/11/23 Unknown History Allergy/AdvReac Type Severity Reaction Status Date / Time No Known Allergies Allergy Verified 09/23/23 12:03 Family History Aunt Cancer Mother Diabetes Heart disease Myocardial infarction Grandfather Heart disease Myocardial infarction Father Heart disease Myocardial infarction Surgical History Hx of foot surgery History of cholecystectomy Hx of wisdom tooth extraction History of hysterectomy History of tubal ligation History of section Social History Smoking Status: Former smoker second hand exposure: Yes alcohol intake: current alcohol intake frequency: holidays/special occasions only substance use type: does not use ROS ROS ED Constitutional Constitutional ED: Denies chills, fever(s) or sweats Eyes Eyes: Denies change in vision ENT ENT ED: Denies dysphagia or sore throat Cardiovascular Cardiovascular: Denies chest pain, leg edema, palpitations or racing heartbeat Respiratory/Chest Respiratory/Chest: Denies cough, dyspnea or dyspnea on exertion Gastrointestinal Gastrointestinal: Denies abdominal pain, diarrhea, nausea or vomiting Genitourinary Genitourinary ED: Denies dysuria, hematuria or urinary frequency Musculoskeletal Musculoskeletal: Denies back pain, extremity pain or neck pain Integumentary Denies rash or wounds Neurologic Neurologic: Denies headache(s), paresthesias or weakness EXAM Physical Exam Const Vital Signs: 09/23/23 12:00 09/23/23 12:00 09/23/23 12:04 Temperature 98 F Temperature Source Temporal Pulse Rate 79 Pulse Rate [Lying] Pulse Rate [Sitting (for 1 minute prior to obtaining)] Pulse Rate [Standing (for 1 minute prior to obtaining)] Respiratory Rate 18 Respiratory Effort Normal Non-Labored Respiratory Pattern Normal Blood Pressure 111/77 Blood Pressure [Lying] Blood Pressure [Sitting (for 1 minute prior to obtaining)] Blood Pressure [Standing (for 1 minute prior to obtaining)] Blood Pressure Mean 88 Blood Pressure Mean [Lying] Blood Pressure Mean [Sitting (for 1 minute prior to obtaining)] Blood Pressure Mean [Standing (for 1 minute prior to obtaining)] Pulse Ox 99 96 Oxygen Delivery Method Room Air Room Air 09/23/23 14:00 09/23/23 14:12 Temperature Temperature Source Pulse Rate 82 Pulse Rate [Lying] 59 L Pulse Rate [Sitting (for 1 minute prior to obtaining)] 65 Pulse Rate [Standing (for 1 minute prior to obtaining)] 84 Respiratory Rate 18 Respiratory Effort Respiratory Pattern Blood Pressure 110/78 Blood Pressure [Lying] 111/69 Blood Pressure [Sitting (for 1 minute prior to obtaining)] 106/66 Blood Pressure [Standing (for 1 minute prior to obtaining)] 104/75 Blood Pressure Mean 88 Blood Pressure Mean [Lying] 83 Blood Pressure Mean [Sitting (for 1 minute prior to obtaining)] 79 Blood Pressure Mean [Standing (for 1 minute prior to obtaining)] 84 Pulse Ox 99 Oxygen Delivery Method Positive well nourished, well developed and obese General Appearance ED: well developed Nutritional Appearance: obese HEENT HEENT Narrative: Mild dry mucosal membranes. Eyes PERRL and EOMs intact bilaterally General Eye ED: Negative for scleral icterus Neck supple Resp normal respiratory effort and clear to auscultation bilaterally Cardio regular rate and regular rhythm Rate: other Other Details: Radial pulses are plus 2 out of 4 bilaterally are equal and symmetric GI normal to inspection, nondistended, normoactive bowel sounds, non-tender and non-distended Auscultation: normoactive bowel sounds Palpation: soft Back/Spine no CVA tenderness Extremity normal to inspection Extremity Narrative: No asymmetric edema no pitting edema negative Homans' sign bilaterally Neuro oriented x3, CN's II-XII intact bilaterally and no sensory deficits noted Sensorium / Orientation: alert Psych mental status grossly normal Skin no rashes or lesions noted General Skin Exam: Negative for jaundice MDM MDM MDM Narrative Medical decision making narrative: Interventions / MDM: Differential diagnosis: Syncope, seizure Diagnosis considered but do not suspect: Intracranial hemorrhage/mass however CT negative. My EKG interpretation: Sinus rate of 75, no ST changes, T wave versions 3 and aVF. QTc 433. Imaging independently reviewed and interpreted by myself: CT brain: No acute process. External documents reviewed: N/A Test considered but not ordered:N/A ED course: Patient with no focal deficits no clinical seizure signs however this is in the differential. She ambulated into the department. EKG sinus rhythm no acute dysrhythmia concerns. Basic labs were ordered CT brain ordered. With vague headache and fatigue, COVID, flu, RSV along with urine also ordered. Labs are all stable CT brain negative. Urine negative. COVID, RSV, influenza negative. No return of symptoms patient reassured on findings. A 48-hour Holter monitor was set up for the patient prior to discharge. She is also given follow-up with neurology for possible seizure. Further workup as an outpatient. Strict return precautions. All questions were answered. Re-evaluation: stable Disposition discussed with patient/family/significant other: Patient Case discussed with consulting clinician: N/A This note was generated with [employer] dictation software. It may contain incorrect words, spelling, and punctuation that were not noted in checking the note before signing. Lab Data Attestation: I reviewed the patient's lab results. Labs: Laboratory Results - last 24 hr 09/23/23 09/23/23 09/23/23 12:25 12:43 14:30 WBC 7.9 RBC 5.06 Hgb 14.8 Hct 43.8 MCV 86.6 MCH 29.2 MCHC 33.8 RDW Std Deviation 43.3 RDW Coeff of Shameka 13.7 Plt Count 293 MPV 12.2 H Immature Gran % (Auto) 0.300 Neut % (Auto) 69.3 Lymph % (Auto) 20.8 [place] % (Auto) 5.1 Eos % (Auto) 4.2 Baso % (Auto) 0.3 Absolute Neuts (auto) 5.5 Absolute Lymphs (auto) 1.64 Nucleated RBC % 0 Sodium 137 Potassium 3.6 Chloride 107 Carbon Dioxide 24.0 Anion Gap 6 BUN 9 Creatinine 0.54 L Estim Creat Clear Calc 163.13 Est GFR (MDRD) Af Amer 161 Est GFR (MDRD) Non-Af 133 BUN/Creatinine Ratio 16.8 Glucose 92 Calcium 9.1 Urine Color Yellow Urine Clarity Clear Urine pH 6.5 Ur Specific [place] 1.010 Urine Protein Negative Urine Glucose (UA) Normal Urine Ketones Negative Urine Occult Blood Negative Urine Nitrite Negative Urine Bilirubin Negative Urine Urobilinogen Normal Ur Leukocyte Esterase Negative Urine RBC 0 SEEN Urine WBC 0 SEEN Ur Squamous Epith Cells 0-5 SEEN Urine Bacteria 0 SEEN Urine Mucus 0 SEEN POC Glucose 82 Radiography Diagnostic Testing: Clinical Impression(s) from Imaging Studies Brain CT 09/23/23 12:45 IMPRESSION: Normal unenhanced CT scan of the brain. Electronically Signed: Reed Cordova MD at 14:28 EDT , Discharge Plan Triage Chief Complaint: Syncope ED Provider: Edis Pressley Dx/Rx/DC Orders Clinical Impression: Syncope, Headache Instructions: Causes of Syncope Prescriptions: No Action meloxicam 15 mg tablet 15 mg PO DAILY hydrocodone-acetaminophen 5-325 mg tablet PO Patient Comments: TAKE 1 TABLET BY MOUTH ONCE DAILY NEEDED FOR PAIN multivitamin Tablet 1 tab PO DAILY Primary Care Provider: Care Physician,No Primary Referrals: Nazario Mohamud MD [Non-Staff -Ordering Privileges] - 1 Week Care Physician,No Primary [Primary Care Provider] - Activity Restrictions/Additional Instructions: CT brain negative EKG labs are normal urine negative for infection. Presenting with concern for syncope however seizures and differential you have no clinical signs of this. Follow-up with Dr. Mohamud for further evaluation and testing as needed if symptoms recur, return to the ED for reevaluation. Maintain the 48-hour Holter monitor and send back as instructed. COVID, flu, RSV negative. Print Language: Belarusian Disposition Disposition: Home, Self Care
[2023-09-23] MEDS: 0.9% Normal Saline (1000mL) 1,000 ML 1000 ML IV (12:55)
[2023-09-23 13:10] LABS: Bedside Glucose 82 mg/dL (74-106)
[2023-09-23 13:18] LABS: Absolute Lymphocyte Count 1.64 X10^3/uL (0.83-4.51); Absolute Neutrophil Count 5.5 X10^3/uL (2.0-7.7); Basophil# 0.02 X10^3/uL; Basophil% 0.3 % (0-1); Eosinophil# 0.33 X10^3/uL; Eosinophils% 4.2 % (0-5); Hematocrit 43.8 % (37-47); Hemoglobin 14.8 g/dL (12.0-15.0); Lymphocyte # 1.64 X10^3/ul (0.83-4.51); Lymphocyte % 20.8 % (19-41); Mean Corp Hgb Conc 33.8 g/dL (32-36); Mean Corpuscular Hgb 29.2 pg (27.0-32.0); Mean Corpuscular Volume 86.6 fL (81-99); Mean Platelet Vol. 12.2 fl (6.2-12.0); Monocyte% 5.1 % (0-10); NRBC Flagged by Analyzer 0 % (0-5); Neutrophil # 5.48 X10^3/uL (2.7-7.7); Neutrophil % 69.3 % (47-70); Platelet Count 293 K/mm3 (150-450); RBC Distribution Width CV 13.7 % (11.6-14.6); RBC Distribution Width SD 43.3 fl (35.1-43.9); Red Blood Count 5.06 M/mm3 (4.2-5.4); White Blood Count 7.9 K/mm3 (4.4-11.0)
[2023-09-23 13:33] LABS: Anion Gap 6 (5-15); BUN 9 mg/dL (7-18); BUN/Creat Ratio 16.8 RATIO (10-20); Calcium,Total 9.1 mg/dL (8.5-10.1); Chloride 107 mmol/L (98-107); Creatinine, Serum 0.54 mg/dL (0.55-1.02); EST Glomerular Filtration Rate 133 mL/min (>60); Est Glom Filt Rate - Afr Amer 161 mL/min (>60); Estimated Creatinine Clearance 163.13 ml/min; Glucose 92 mg/dL (74-106); Potassium 3.6 mmol/L (3.5-5.1); Sodium Level 137 mmol/L (136-145)
[2023-09-23 14:00] VITALS: BP 110/78; PULSE 82; RESP 18; O2SAT 99
[2023-09-23 14:12] VITALS: BP 104/75; BP 106/66; BP 111/69; PULSE 59; PULSE 65; PULSE 84
[2023-09-23 14:40] LABS: Bacteria 0 SEEN /hpf (None Seen); Mucous, Urine 0 SEEN /hpf (<or=2+); Red Blood Cells-Urine 0 SEEN /hpf (0-5); White Blood Cells 0 SEEN /hpf (0-5)
[2023-09-23 14:45] LABS: Color, Urine Yellow (Yellow); Glucose, Dipstick Normal (Normal); Ketone-Dipstick Negative (Negative); Leukocyte Esterase-Dipstick Negative /ul (Negative); Nitrite-Dipstick Negative (Negative); Occult Blood-Urine Negative /ul (Negative); Protein-Dipstick Negative (Negative); Urine Bilirubin Dipstick Negative (Negative); Urine Clarity Clear (Clear); Urine Urobilinogen Normal (Normal); Urine pH 6.5 (5.0 - 8.0)
[2023-09-23 14:55] LABS: Squamous Epithelial Cells - UA 0-5 SEEN /hpf (5-10)
[2023-09-23 16:00] VITALS: BP 112/80; PULSE 76; RESP 16; O2SAT 98
[2023-09-23 16:19] VITALS: BP 111/82; PULSE 76; RESP 16; TEMP 36.7; O2SAT 98
[2023-09-23 18:27] LABS: Bedside Glucose 78 mg/dL (74-106)
== END 2023-09-23 16:21 | disposition home or self-care (01) ==
PROVIDERS: Emergency Provider Emergency Medicine; Visit Provider Emergency Medicine
DX: R55 Syncope and collapse (principal); Z87.891 Personal history of nicotine dependence; R73.03 Prediabetes; R51.9 Headache, unspecified; K21.9 Gastro-esophageal reflux disease without esophagitis; Z90.710 Acquired absence of both cervix and uterus; Z98.51 Tubal ligation status
CPT/HCPCS: 70450; 80048; 81001; 82962; 85025; 87631; 93005; 99285; J7030; A4216

== ENCOUNTER → 2023-09-23 | Outpatient (CLI) | payer MEDICAID, SELFPAY | END | disposition home or self-care (01) | PROVIDERS: Visit Provider Emergency Medicine | DX: Z00.00 Encounter for general adult medical examination without abnormal findings (principal) ==

== ENCOUNTER → 2023-12-01 | Outpatient (CLI) | payer MEDICAID, SELFPAY ==
--- NOTE | 2023-12-01 12:41 | ECHOD_ITS ---
Reason For Study: Syncope and Collapse Procedure This was a 2D Doppler, Color Flow transthoracic echocardiogram. Exam performed in department. Left Ventricle Normal LV size. Left ventricular systolic function is normal. The left ventricular ejection fraction is 60 %. No regional wall motion abnormalities noted. Right Ventricle Normal RV size. Normal systolic function. Atria Normal left atrium. Normal right atrium. Hypermobile atrial septum. Patent foramen ovale. Tricuspid Valve Normal tricuspid valve. Mild tricuspid valve insufficiency. Pulmonary artery systolic pressure is 22 mmHg. Pulmonic Valve Normal pulmonic valve. Great Vessels Normal aortic root. The pulmonary artery is normal size. Normal inferior vena cava. Pericardium/Pleural No pericardial effusion. Medication 22 gauge I.V. with prn adaptor inserted into right arm. Performed a rapid injection of agitated mix of 9 cc saline and 1cc air to assess for atrial septal defect. MMode/2D Measurements & Calculations LVIDd: 4.7 cm IVSd: 1.1 cm LA dimension: 3.7 cm LVIDs: 3.1 cm LVPWd: 0.64 cm RVDd: 3.7 cm FS: 34.1 % LAV(MOD-bp): 61.7 ml LVAd ap4: 31.7 cm2 SV(MOD-sp4): 60.6 ml LAV(MOD-bp) Indexed: 29.6 ml/m2 LVLd ap4: 7.7 cm LAV(MOD-sp2): 59.1 ml EDV(MOD-sp4): 103.8 ml LAV(MOD-sp4): 61.7 ml EDV(sp4-el): 111.3 ml LVAs ap4: 18.5 cm2 LVLs ap4: 6.5 cm ESV(MOD-sp4): 43.3 ml ESV(sp4-el): 44.8 ml EF(MOD-sp4): 58.3 % EF(sp4-el): 59.7 % SV(sp4-el): 66.4 ml LA A4 area: 20.4 cm2 RA A4 area: 15.4 cm2 TAPSE: 1.7 cm Time Measurements MV dec time: 0.19 sec Doppler Measurements & Calculations MV E max ilir: 89.4 cm/sec Lat Peak E' Ilir: 19.4 cm/sec Med Peak E' Ilir: 13.4 cm/sec MV A max ilir: 66.1 cm/sec E/E' lat: 4.6 E/E' med: 6.7 MV E/A: 1.4 MV V2 max: 98.5 cm/sec MV P1/2t max ilir: 98.5 cm/sec Ao V2 max: 137.8 cm/sec MV max P.9 mmHg MV P1/2t: 72.1 msec Ao max P.6 mmHg MV V2 mean: 57.1 cm/sec MV dec slope: 400.0 cm/sec2 Ao V2 mean: 101.8 cm/sec MV mean P.6 mmHg Ao mean P.7 mmHg MV V2 VTI: 27.0 cm MVA(P1/2t): 3.1 cm2 Ao V2 VTI: 30.2 cm AV (velocity ratio): 0.85 LV V1 max: 114.7 cm/sec TR max ilir: 220.1 cm/sec LV V1 max P.3 mmHg TR max P.4 mmHg LV V1 mean P.4 mmHg LV V1 mean: 87.2 cm/sec LV V1 VTI: 25.7 cm ECHO/Echo Complete Interpretation Summary Hypermobile atrial septum. Normal LV size. Left ventricular systolic function is normal. The left ventricular ejection fraction is 60 %. Patent foramen ovale. The global longitudinal strain is normal. The global longitudinal strain = -19. 7 % (normal). Ordering Physician: Shankar Bernard Referring Physician: Shankar Bernard Performed By: Kirt Blancas RCS
--- NOTE | 2023-12-01 15:05 | STRESSREP ---
Stress Test Report Exercise stress test. 43-year-old lady with a history of chest pain Stress protocol: Resting EKG demonstrates normal sinus rhythm with a rate of 69 bpm resting blood pressure is 102/78 mmHg. The patient exercised according to the regular Ken protocol for a total duration of 7 minutes attaining a maximum heart rate of 176 bpm which was 98% of maximum predicted heart rate; the maximum workload was 10.1 metabolic equivalents. At rest there were no ST or T wave changes noted to suggest ischemia and at peak exercise upsloping ST changes only were noted which did not meet the criteria for ischemia. No clinical angina was noted the test was terminated due to the target heart rate being achieved/fatigue. The peak blood pressure was 138/64 mmHg. Rate-pressure product was 22,400. Conclusion: Stress test with no EKG criteria for ischemia at a high workload.
== END | disposition home or self-care (01) ==
LOC: CVS 12:39
PROVIDERS: Referring Provider Internal Medicine Cardiovascular Disease; Visit Provider Internal Medicine Cardiovascular Disease
DX: R07.9 Chest pain, unspecified (principal); R55 Syncope and collapse
CPT/HCPCS: 93017; 93306; A4216

== ENCOUNTER 2024-10-19 16:45 | Emergency (ER) | payer MEDICAID, SELFPAY ==
[2024-10-19 16:47] VITALS: BP 123/88; PULSE 81; RESP 16; TEMP 36.9; O2SAT 100; BMI 31.8
--- NOTE | 2024-10-19 17:07 | EKG12_ITS ---
Test Reason : CHEST PRESSURE Blood Pressure : */* mmHG Vent. Rate : 81 BPM Atrial Rate : 81 BPM P-R Int : 168 ms QRS Dur : 72 ms QT Int : 384 ms P-R-T Axes : 72 52 55 degrees QTcB Int : 446 ms Normal sinus rhythm Low voltage QRS Borderline ECG Confirmed by Shankar Bernard ([id number]), editor newspaper DONA BARROW ([id number]) on 10/21/2024 6:10:12 AM Referred By: Confirmed By: Shankar Bernard
[2024-10-19 17:33] LABS: Absolute Lymphocyte Count 2.92 X10^3/uL (0.83-4.51); Absolute Neutrophil Count 5.2 X10^3/uL (2.0-7.7); Basophil# 0.06 X10^3/uL; Basophil% 0.7 % (0-1); Eosinophil# 0.08 X10^3/uL; Eosinophils% 0.9 % (0-5); Hematocrit 44.5 % (37-47); Hemoglobin 15.3 g/dL (12.0-15.0); Lymphocyte # 2.92 X10^3/ul (0.83-4.51); Lymphocyte % 33.7 % (19-41); Mean Corp Hgb Conc 34.4 g/dL (32-36); Mean Corpuscular Hgb 30.4 pg (27.0-32.0); Mean Corpuscular Volume 88.3 fL (81-99); Mean Platelet Vol. 10.7 fl (6.2-12.0); Monocyte# 0.37 X10^3/uL; Monocyte% 4.3 % (0-10); NRBC Flagged by Analyzer 0 % (0-5); Neutrophil # 5.21 X10^3/uL (2.7-7.7); Neutrophil % 60.2 % (47-70); Platelet Count 283 K/mm3 (150-450); RBC Distribution Width CV 12.8 % (11.6-14.6); RBC Distribution Width SD 41.5 fl (35.1-43.9); Red Blood Count 5.04 M/mm3 (4.2-5.4); White Blood Count 8.7 K/mm3 (4.4-11.0)
--- NOTE | 2024-10-19 17:45 | RAD_ITS ---
PROCEDURE: CHEST 1 VIEW (PORTABLE) 10/19/2024 REASON FOR EXAM: CHEST PAIN TECHNIQUE: Frontal view of the chest. COMPARISON: 12/22/2020 FINDINGS: No focal consolidations. No pleural effusion or pneumothorax. Cardiac silhouette is unchanged. No acute fractures. RAD/Chest 1 View (Portable) IMPRESSION: No focal consolidations. Reading Location: [id number]
[2024-10-19 17:49] VITALS: BP 106/69; PULSE 68; RESP 12; O2SAT 99
--- NOTE | 2024-10-19 17:52 | EX.ED.DYSGE1 ---
HPI History of Present Illness Chief Complaint: General Illness Informant: patient Onset/Context/Timing Onset: Days (3) Context: Gradual Onset Timing: Continuous Quality: Pressure Location: Head, chest Worsened by: Nothing Relieved by: Nothing Narrative Narrative: Patient presents with fatigue, nausea, and dizziness that has been getting worse over the past 3 days. Patient also admits to mild headache that she describes as a pressure. Patient admits to some nausea but denies any vomiting. Patient denies any abdominal pain. Patient does admit to some mild chest pressure that has been intermittent. Patient states it feels like a small kitten is sitting on her chest at times. Patient denies any fevers or chills. Patient denies any shortness of breath or cough. [facility] Medical History History of abnormal Holter exam Prediabetes COVID Post-menopausal History of steroid therapy Arthritis Gastric reflux Former smoker History of pain when walking History of edema Encounter for screening for COVID-19 URI (upper respiratory infection) Contact with or suspected exposure to other viral communicable disease Cough Tendinitis Depression Yeast infection of nipple, Home Medications ?Medication ?Instructions ?Recorded ?Last Taken ?Type multivitamin 1 tab PO DAILY 04/11/23 10/19/24 History dulaglutide 0.75 mg/0.5 mL 0.75 mg subcut QWEEK 10/19/24 10/15/24 History subcutaneous pen injector (Trulicity) dupilumab 200 mg/1.14 mL 200 mg subcut .COMPLEX 10/19/24 10/08/24 History subcutaneous syringe (Dupixent) metformin 500 mg tablet,extended 1,000 mg PO BID 10/19/24 10/19/24 History release 24 hr suvorexant 20 mg tablet (Belsomra) 20 mg PO QHS 10/19/24 10/16/24 History Allergy/AdvReac Type Severity Reaction Status Date / Time No Known Allergies Allergy Verified 10/19/24 16:47 Family History Aunt Cancer Mother Diabetes Heart disease Myocardial infarction Grandfather Heart disease Myocardial infarction Father Heart disease Myocardial infarction Surgical History Hx of foot surgery History of cholecystectomy Hx of wisdom tooth extraction History of hysterectomy History of tubal ligation History of section Social History Smoking Status: Current every day smoker tobacco type: cigarettes and e-cigarettes second hand exposure: Yes alcohol intake: current alcohol intake frequency: holidays/special occasions only substance use type: does not use caffeine: Yes ROS ROS ED Constitutional Constitutional ED: Denies chills or fever(s) Eyes Eyes: Denies blurry vision or change in vision ENT ENT ED: Denies rhinorrhea or sore throat Cardiovascular Cardiovascular: Reports chest pain; Denies palpitations Respiratory/Chest Respiratory/Chest: Denies cough or dyspnea Gastrointestinal Gastrointestinal: Reports nausea; Denies vomiting Genitourinary Genitourinary ED: Denies dysuria or hematuria Musculoskeletal Musculoskeletal: Reports back pain; Denies neck pain Integumentary Denies abscess or rash Neurologic Neurologic: Reports headache(s); Denies weakness Allergic/Immunologic Allergic/Immunologic ED: Denies mouth swelling or urticaria EXAM Physical Exam Const Vital Signs: 10/19/24 16:47 10/19/24 17:33 10/19/24 17:49 Temperature 98.4 F Temperature Source Oral Pulse Rate 81 68 Respiratory Rate 16 12 Blood Pressure 123/88 H 106/69 Blood Pressure Mean 99 81 Pulse Ox 100 99 Oxygen Delivery Method Room Air Room Air Room Air 10/19/24 18:00 10/19/24 19:00 10/19/24 20:00 Temperature Temperature Source Pulse Rate 81 637 H 65 Respiratory Rate 16 14 13 Blood Pressure 110/74 113/68 120/76 Blood Pressure Mean 86 83 90 Pulse Ox 100 100 100 Oxygen Delivery Method Room Air Positive well nourished and well developed General Appearance ED: well developed and NAD HEENT Reports moist mucous membranes Neck supple and no JVD Resp normal respiratory effort and clear to auscultation bilaterally Cardio regular rate and regular rhythm GI non-tender and non-distended Palpation: soft Neuro oriented x3, CN's II-XII intact bilaterally and no sensory deficits noted Sensorium / Orientation: alert Motor Exam: strength 5/5 throughout Psych mental status grossly normal MDM MDM MDM Narrative Medical decision making narrative: Differential diagnosis includes cardiac dysrhythmia, cardiac ischemia, pneumonia, electrolyte abnormality, dehydration, viral illness, and medication side effect. EKG will be obtained to assess for cardiac dysrhythmia and cardiac ischemia. Chest x-ray will be obtained to assess for pneumonia and bronchitis. CBC will be obtained to assess for leukocytosis and anemia. Basic metabolic profile will be obtained to assess for electrolyte abnormality and renal function. High-sensitivity troponin will be obtained to assess for cardiac ischemia. 2-hour repeat high-sensitivity troponin will be obtained to assess for ongoing cardiac ischemia. COVID-19, influenza, and RSV PCR will be obtained to assess for viral illness. History & Record Review Additional record(s) reviewed:: Prior ED visit and Prior labs Lab Data Attestation: I reviewed the patient's lab results. Lab results narrative: CBC was reviewed and was within normal limits. Basic metabolic profile was reviewed and was within normal limits. Initial high-sensitivity troponin was reviewed and was less than 6. 2-hour repeat high-sensitivity troponin was reviewed and was less than 6. Labs: Laboratory Results - last 24 hr 10/19/24 10/19/24 17:22 19:35 WBC 8.7 RBC 5.04 Hgb 15.3 H Hct 44.5 MCV 88.3 MCH 30.4 MCHC 34.4 RDW Std Deviation 41.5 RDW Coeff of Shameka 12.8 Plt Count 283 MPV 10.7 Immature Gran % (Auto) 0.200 Neut % (Auto) 60.2 Lymph % (Auto) 33.7 [place] % (Auto) 4.3 Eos % (Auto) 0.9 Baso % (Auto) 0.7 Absolute Neuts (auto) 5.2 Absolute Lymphs (auto) 2.92 Nucleated RBC % 0 Sodium 139 Potassium 4.2 Chloride 104 Carbon Dioxide 25.5 Anion Gap 10 BUN 9 Creatinine 0.66 L Estim Creat Clear Calc 117.69 Est GFR (MDRD) Non-Af 113 BUN/Creatinine Ratio 14.4 Glucose 77 Calcium 9.3 Troponin T High Sens < 6 Troponin T Hi Sens 2 Hr < 6 Radiography Chest X-Ray - ED: 1 View, Read by ED Physician, Read by Radiologist and No Acute Disease Diagnostic Testing: Clinical Impression(s) from Imaging Studies Chest X-Ray 10/19/24 17:45 IMPRESSION: No focal consolidations. Reading Location: [id number] Portable 1 view chest x-ray was obtained. On my independent interpretation, lung gary are clear. There is normal cardiac silhouette. Bony thorax is normal. There is no acute process noted. Radiologist also interpreted the x-ray and agrees. EKG Initial EKG: Attestation: I personally reviewed and interpreted this EKG as follows: Interpretation: Sinus Rhythm (81) and No Acute Injury Pattern Comments: EKG was obtained. On my independent interpretation, it showed a normal sinus rhythm with a rate of 81. [place] interval, QRS interval, and QTc intervals were all normal. [place] was normal. There are no acute ST or T wave changes. Prior EKG tracings: available for review Prior: Unchanged (11/14/2023) Treatment and Re-Evaluation :: Patient was given aspirin. Patient was advised of her findings. Patient has a HEART score of 1. Patient was advised that this is low risk for acute cardiac event. Patient was instructed to drink plenty of fluids. Patient was instructed to follow-up with her primary care physician in 5 to 7 days for further evaluation. Patient understood and was agreeable with the plan. All questions were answered. Discharge Plan Triage Chief Complaint: General Illness ED Provider: Osmar Burks Dx/Rx/DC Orders Clinical Impression: Chest pain, Prediabetes, Fatigue Instructions: ED Chest Pain, Uncertain Cause, ED Weakness Uncertain Cause Prescriptions: No Action multivitamin Tablet 1 tab PO DAILY Belsomra 20 mg tablet 20 mg PO QHS Trulicity 0.75 mg/0.5 mL pen injector 0.75 mg subcut QWEEK metformin 500 mg tablet extended release 24 hr 1,000 mg PO BID Dupixent Syringe 200 mg/1.14 mL syringe 200 mg subcut .COMPLEX Rx Instructions: 200 mg subcutaneously EVERY TWO WEEKS; PT NOT SURE OF STRENGTH Stand Alone Forms: ED Work / School Excuse Primary Care Provider: Care Physician,No Primary Referrals: Marvin Silva MD [Med Staff - Active Staff] - 5-7 Days Care Physician,No Primary [Primary Care Provider] - Print Language: Upper Sorbian Disposition Disposition: Home, Self Care
[2024-10-19 18:00] VITALS: BP 110/74; PULSE 81; RESP 16; O2SAT 100
[2024-10-19 18:04] LABS: Anion Gap 10 (5-15); BUN 9 mg/dL (4-19); BUN/Creat Ratio 14.4 RATIO (10-20); Calcium,Total 9.3 mg/dL (7.6-11.0); Carbon Dioxide 25.5 mmol/L (21.0-32.0); Chloride 104 mmol/L (98-108); Creatinine, Serum 0.66 mg/dL (0.70-1.20); EST Glomerular Filtration Rate 113 (>60); Estimated Creatinine Clearance 117.69 ml/min (50-250); Glucose 77 mg/dL (70-99); Potassium 4.2 mmol/L (3.3-5.1); Sodium Level 139 mmol/L (133-145); Troponin T High Sensitivity < 6 ng/L (<=14)
[2024-10-19] MEDS: Aspirin 81 MG TAB.CHEW 324 MG PO (18:09)
[2024-10-19 19:00] VITALS: BP 113/68; PULSE 637; RESP 14; O2SAT 100
--- NOTE | 2024-10-19 19:59 | CM.ED ---
Social Work Reason for visit: No PCP. SW introduced self to patient and explained reason for visit. Patient stated that she sees a nurse practitioner at [facility]. Denies need for resources at this time. No further needs identified at this time. Vanda Weeks, [employer], PENSION ADMINISTRATOR
[2024-10-19 20:00] VITALS: BP 120/76; PULSE 65; RESP 13; O2SAT 100
[2024-10-19 20:19] LABS: Troponin T High Sens 2 HR < 6 ng/L (<=14)
[2024-10-19 21:00] VITALS: BP 121/74; PULSE 63; RESP 18; TEMP 36.6; O2SAT 99
== END 2024-10-19 21:03 | disposition home or self-care (01) ==
PROVIDERS: Emergency Provider Emergency Medicine; Visit Provider Emergency Medicine
DX: R07.9 Chest pain, unspecified (principal); R73.03 Prediabetes; R51.9 Headache, unspecified; R42 Dizziness and giddiness; R11.0 Nausea; R53.83 Other fatigue; M54.9 Dorsalgia, unspecified; Z11.52 Encounter for screening for COVID-19; Z79.85 Long-term (current) use of injectable non-insulin antidiabetic drugs; Z79.84 Long term (current) use of oral hypoglycemic drugs; Z79.899 Other long term (current) drug therapy; F17.210 Nicotine dependence, cigarettes, uncomplicated; F17.290 Nicotine dependence, other tobacco product, uncomplicated; Z90.710 Acquired absence of both cervix and uterus
CPT/HCPCS: 71045; 80048; 84484; 85025; 93005; 99284; A4216

== ENCOUNTER 2024-12-07 11:00 | Outpatient (CLI) | payer MEDICAID, SELFPAY | END 2024-12-07 19:00 | disposition home or self-care (01) | LOC: CVS 03-16 10:18 | PROVIDERS: PCP Nurse Practitioner Family; Referring Provider Nurse Practitioner Family; Visit Provider Nurse Practitioner Family | DX: Z76.89 Persons encountering health services in other specified circumstances (principal) | CPT/HCPCS: Q9957; A4216 ==

== ENCOUNTER → 2024-12-07 | Outpatient (CLI) | payer MEDICAID, SELFPAY ==
--- NOTE | 2024-12-07 10:48 | STEWCON_ITS ---
Reason For Study Reason For Study: CHEST PAIN Stress Results Protocol: Ken Protocol WITH DEFINITY Maximum Predicted HR: 178 bpm Target HR: 151 bpm % Maximum Predicted HR: 93 % DurationHeart Rate Stage (mm:ss) (bpm) BP Comment BASELINE 73 104/70 STAGE 1 3:00 115 110/60 STAGE 2 3:00 139 122/70 STAGE 3 1:30 166 / 5 CC DEFINITY FOR ENTIRE TEST RECOVERY 93 104/58 Stress Duration: 7:30 mm:ss Maximum Stress HR: 166 bpm Baseline Echocardiogram Findings Stress Echo Wall motion Data Resting WM Intermediate WM Stress WM ECHO/Stress Test Echo W/Contrast Interpretation Summary Exercise stress echo with Definity enhancement. Resting EKG demonstrates normal sinus rhythm with a rate of 79 bpm resting bloo d pressure is 104/70 mmHg. The patient exercised according to regular Ken protocol for a total duration of 7 minutes and 30 seconds. Patient completed 1 minute and 30 seconds to stage III of the Ken protocol the maximum heart rate attained was 166 bpm which was 93% of maximum predicted heart rate to the maximum workload was 10.1 metabolic equival ents. At rest there were no ST or T wave changes noted suggest ischemia and at peak exercise upsloping ST changes were n oted which did not meet the criteria for ischemia. No clinical angina was noted the test was terminated due to generaliz ed fatigue. The peak blood pressure was 122/70 mmHg which was fairly flat. Stress echocardiogram. Definity enhanced resting and stress echocardiograms wer e performed. The resting echocardiogram demonstrated a borderline ejection fraction of 50%. The anteroseptal wall appea rs to be mildly hypokinetic. With stress there appeared to be a similar pattern with improvement of the ejection fractio n to approximately 60%. No obvious wall motion abnormalities were noted. Conclusion: Definity enhanced stress echocardiogram with no obvious ischemic changes at pea k exercise. Ordering Physician: Fran Aguilera Referring Physician: Fran Aguilera Performed By: Nidhi Thomson, FRANCISCO JAVIER, RVT
== END | disposition home or self-care (01) ==
LOC: CVS 10:48
PROVIDERS: PCP Nurse Practitioner Family; Referring Provider Student in an Organized Health Care Education/Training Program; Visit Provider Student in an Organized Health Care Education/Training Program
DX: R07.9 Chest pain, unspecified (principal); R55 Syncope and collapse; Z92.89 Personal history of other medical treatment
CPT/HCPCS: 93350; 93017; C8928